=== PATIENT | male | born 2000 ===

== ENCOUNTER 2024-07-15 19:54 | Inpatient (IN) | payer BC, SELFPAY ==
[2024-07-15 19:57] VITALS: BP 159/111; PULSE 87; RESP 20; TEMP 36.8; O2SAT 96
[2024-07-15 20:00] VITALS: BP 159/111; PULSE 87; RESP 20; TEMP 36.8; O2SAT 96
[2024-07-15] MEDS: Ondansetron 4 MG/2 ML VIAL IVP (20:35)
[2024-07-15 20:45] LABS: Abs Immature Grans 0.04 10^3/uL (0.0-0.06); Absolute Basophil Count 0.01 10^3/uL (0.0-0.2); Absolute Eosinophil Count 0.02 10^3/uL (0.0-0.7); Absolute Lymphocyte Count 1.03 10^3/uL (1.2-3.4); Absolute Neutrophil Count 9.96 10^3/uL (1.2-6.7); Basophils % 0.1 %; Eosinophils % 0.2 %; HGB 14.1 g/dL (13.5-17.5); Immature Grans % 0.3 %; Lymphocytes % 8.7 %; MCHC 35.3 % (32.0-36.0); MCV 85 fL (80-95); MPV 9.8 fL (8.0-11.0); Monocytes % 6.4 %; Neutrophils % 84.3 %; Platelet Count 216 10^3/uL (130-400); RDW 11.9 % (11.8-14.1); RDW-SD 36.9 fL; WBC 11.81 10^3/uL (4.4-10.8)
[2024-07-15 20:46] LABS: Absolute Monocyte Count 0.76 10^3/uL (0.1-0.8)
[2024-07-15 20:58] VITALS: BP 147/90; PULSE 52; RESP 14; O2SAT 98
--- NOTE | 2024-07-15 21:06 | ED.GENADUL_ITS ---
Discharge Plan Disposition Patient Disposition: Admit to [facility] Condition: Improving Discharge Details Chief Complaint: Abd Prob Clinical Impression: MANDY (acute kidney injury) Primary Care Provider: Danita,Local ED Provider: Melissa Moreno Home Meds and New Rx's Prescriptions: No Action amoxicillin 500 mg capsule 500 mg PO TID acetaminophen [Tylenol] 325 mg tablet 650 mg PO Q6H PRN ibuprofen 300 mg tablet 600 mg PO Q6H HPI General Mode of arrival: ambulatory . Date/Time Provider Initiated Documentation: 07/15/24 20:08 . Limitations to Documentation: no limitations . Information obtained by: patient, family and old records reviewed . HPI Narrative: This is a 23-year-old male patient presenting for evaluation of nausea and vomiting. The patient reports that he was started on amoxicillin on Saturday, and has been taking that 3 times per day as prescribed. This was for a right lower tooth dental infection, and he does report some improvement in those symptoms. He states that 2 to 3 days ago he developed some nausea and has been vomiting, nonbloody, with no associated diarrhea or dysuria. He states that he has been able to drink water but has not really been eating. He has had some nonspecific abdominal pain. No history of abdominal surgeries. Nobody else has been sick with similar symptoms in his home. He stopped smoking marijuana in March, vapes nicotine when he is well. No alcohol consumption reported Related Data Home Medications ?Medication ?Instructions ?Recorded ?Confirmed acetaminophen 325 mg tablet 650 mg PO Q6H PRN 07/15/24 07/15/24 (Tylenol) amoxicillin 500 mg capsule 500 mg PO TID 07/15/24 07/15/24 ibuprofen 300 mg tablet 600 mg PO Q6H 07/15/24 07/15/24 Allergies Allergy/AdvReac Type Severity Reaction Status Date / Time No Known Allergies Allergy Unverified 07/15/24 20:01 General Stated Complaint: Abd Prob WILMER: 3 Exam Narrative Exam Narrative: Gen: Awake and alert, in no apparent distress HEENT: Non-icteric sclera Neck: Supple Lungs: No apparent respiratory distress, normal respiratory effort. CV: Appears well perfused, heart with regular rate and rhythm, strong distal pulses Abdomen: Non-distended, soft, nontender to palpation, without rigidity, rebound, or guarding MSK: Moves 4 extremities without apparent limitation in ROM Skin: Visualized skin without rashes, cyanosis. Neuro: Normal Gait, no obvious focal deficits or facial asymmetry. Speaks in full, clear sentences. Psych: Appropriate for situation. Course Vital Signs Vital signs: Vital Signs Temperature 36.8 C 07/15/24 19:57 Pulse 87 07/15/24 19:57 Respiratory Rate 20 07/15/24 19:57 Blood Pressure 159/111 H 07/15/24 19:57 Pulse Oximetry 96 07/15/24 19:57 Temperature 36.8 C 07/15/24 20:00 Pulse 52 L 07/15/24 20:58 Respiratory Rate 14 07/15/24 20:58 Respiratory Effort Normal 07/15/24 20:58 Respiratory Depth Normal 07/15/24 20:58 Blood Pressure 147/90 H 07/15/24 20:58 Blood Pressure Mean 109 07/15/24 20:58 Blood Pressure Position Sitting 07/15/24 20:58 Pulse Oximetry 98 07/15/24 20:58 Oxygen Delivery Method Room Air 07/15/24 20:58 Oxygen Flow Rate 0 07/15/24 20:58 Lab/Test Results Lab/Test Results: Laboratory Tests Range/Units 07/15/24 20:37 WBC (4.4-10.8) 10^3/uL 11.81 H RBC (4.36-5.78) 10^6/uL 4.70 Hgb (13.5-17.5) g/dL 14.1 Hct (40.0-50.0) % 40.0 MCV (80-95) fL 85 MCH (27.0-33.0) pg 30.0 MCHC (32.0-36.0) % 35.3 RDW (11.8-14.1) % 11.9 Plt Count (130-400) 10^3/uL 216 MPV (8.0-11.0) fL 9.8 Immature Gran % % 0.3 Neutrophils % % 84.3 Lymphocytes % % 8.7 Monocytes % % 6.4 Eosinophils % % 0.2 Basophils % % 0.1 Nucleated RBC % (0.0-0.3) % 0.0 Absolute Neutrophils (1.2-6.7) 10^3/uL 9.96 H Absolute Lymphocytes (1.2-3.4) 10^3/uL 1.03 L Absolute Monocytes (0.1-0.8) 10^3/uL 0.76 Absolute Eosinophils (0.0-0.7) 10^3/uL 0.02 Absolute Basophils (0.0-0.2) 10^3/uL 0.01 Medical Decision Making This is a 23-year-old male patient presenting for evaluation of vomiting. Differential includes but is not limited to medication effect, gastritis and gastroenteritis, pancreatitis, hepatitis, cholecystitis, considered appendicitis and diverticulitis though the patient is reassuringly without fever or abdominal tenderness. I considered metabolic derangements, electrolyte changes, dehydration, kidney injury, liver disease, anemia. We will obtain laboratory studies to include CBC, CMP, magnesium, lipase, and will provide the patient with a dose of Zofran for initial management of his symptoms. -I reviewed the patient's laboratory studies, white blood cell count 11.8, no anemia or thrombocytopenia. Chemistry panel is most notable for an elevation in his BUN and creatinine to 51 and 5.6 respectively. He has no other significant electrolyte derangements nor evidence of liver disease. Lipase is low. On repeat questioning, the patient reports that he had been taking a therapeutic amount of ibuprofen for his toothache. I am most concerned for prerenal MANDY, though certainly I considered AIN, ATN, nephrosis and nephritic syndromes. A urinalysis was obtained that shows trace blood, no casts or infectious findings. I provided the patient with a liter of IV fluids and he tolerated p.o. fluids appropriately without further vomiting. A repeat BNP was sent, which shows a slight decrease in his BUN and creatinine, 49 and 5.3 respectively. The patient is making appropriate urine and a second liter of fluids was provided. I feel that he warrants admission for his MANDY, and reach out to our hospitalist to discuss this case. They have graciously accepted this patient for admission for his MANDY, likely in the setting of dehydration and ibuprofen use. He was transferred to the hospitalist team without incident and remained hemodynamically appropriate while under my care. Melissa Moreno MD Quality:[facility] Health Related Social Needs: No Data to Display [facility] All Active Problems (Updated 07/16/24 @ 00:15 by Melissa Moreno MD) MANDY (acute kidney injury) (Acute) Social History Smoking risk assessment performed?: No
[2024-07-15 21:15] LABS: ALT 14 U/L (16-63); AST 14 U/L (15-37); Albumin 4.1 g/dL (3.4-5.0); Alkaline Phosphatase 58 U/L (46-116); Anion Gap 13.2 mmol/L (3-11); BUN 51 mg/dL (7-18); Bilirubin, Total 0.6 mg/dL (0.2-1.0); CO2 24.8 mmol/L (21.0-32.0); Calcium 9.5 mg/dL (8.5-10.1); Chloride 100 mmol/L (98-107); Estimated GFR 13.55 (mL/min/1.73m2); Glucose 110 mg/dL (74-106); Lipase 27 U/L (<78); Magnesium 2.5 mg/dL (1.8-2.4); Sodium 138 mmol/L (136-145); Total Protein 8.4 g/dL (6.4-8.2)
[2024-07-15 21:41] LABS: CREATININE 5.6 mg/dL (0.70-1.30)
[2024-07-15] MEDS: Lactated Ringers 1,000 ML 1000 ML IV (21:56)
[2024-07-15 22:58] LABS: Bilirubin Negative (Negative); Blood Small (Negative); Clarity Clear (Clear); Glucose Negative (Negative); Ketones Negative (Negative); Leukocyte Esterase Negative (Negative); Nitrite Negative (Negative); Specific Gravity 1.015 (1.005-1.025); Urobilinogen 0.2 mg/dL (Up to 0.2)
[2024-07-15 23:09] LABS: Bacteria Rare HPF (Negative); C & S Indicated? No; Crystals Negative HPF (Negative); Epithelial Cells Negative HPF (Negative); Mucus Negative (Negative); WBC Negative HPF (0-5)
[2024-07-15 23:47] LABS: Anion Gap 10.9 mmol/L (3-11); BUN 49 mg/dL (7-18); CO2 25.1 mmol/L (21.0-32.0); Calcium 9.1 mg/dL (8.5-10.1); Chloride 100 mmol/L (98-107); Estimated GFR 14.48 (mL/min/1.73m2); Glucose 110 mg/dL (74-106); Potassium 3.9 mmol/L (3.5-5.1); Sodium 136 mmol/L (136-145)
[2024-07-15 23:54] LABS: CREATININE 5.3 mg/dL (0.70-1.30)
[2024-07-16] VITALS (8 sets, daily range): BP systolic 128–154; BP diastolic 81–98; PULSE 45–60; RESP 16–24; TEMP 36.7–37.3; O2SAT 96–98
[2024-07-16] MEDS: Lactated Ringers 1,000 ML 1000 ML IV (00:02)
--- NOTE | 2024-07-16 00:22 | HPE_ITS ---
Date of service: 07/16/24 Time of Service: 00:22 Assessment and Plan Assessment and plan (1) MANDY (acute kidney injury): Start date: 07/16/24 Status: Acute Assessment and plan: This is a 23-year-old gentleman with recent nausea and vomiting after dental evaluation and treatment with amoxicillin and taking appropriate doses of ibuprofen for dental pain. He presents with evaluation of his nausea and vomiting and was found to have acute kidney injury with no comparison renal functions in the recent past. Patient is generally healthy and on no medical therapy. His urinalysis did appear nonconcentrated with some protein but no blood. He is responding to IV fluids with trending down creatinine but this is not rapid. Patient is essentially asymptomatic. He denies any gross hematuria in the past. He has no family history of significant renal disease. He needs to be imaged with renal ultrasound in the morning and will continue IV fluid resuscitation for probable acute kidney injury secondary to NSAIDs and volume loss. If he is not improving or picking up and his urine output, nephrology consultation by phone with recommendations. We will avoid nephrotoxic drugs. Patient is a full code. (2) Nausea & vomiting: Start date: 07/16/24 Status: Acute Assessment and plan: Patient has resolved this problem with benign abdominal exam. IV fluid resuscitation, antiemetics as needed and no further treatment with amoxicillin at this time. Patient will be on normal diet as tolerated. History of Present Illness History of Present Illness Chief Complaint: Nausea and vomiting after dental procedure on amoxicillin Narrative: This is a 23-year-old male patient who is on no medical therapy and has no chronic medical problems who presents after a 2 to 3-day history of nausea and vomiting with mild abdominal discomfort on amoxicillin for a dental infection in his right lower teeth. His dental problem has improved but he has not been eating well though he does not drink fluids. He is a previous marijuana smoker but has been off this for several months. He denies any diarrhea or symptoms has not felt faint. He has no respiratory complaints. He presented to the ED because of his persistent nausea and vomiting and does admit to taking ibuprofen for his dental pain while he was vomiting. In the ED he was found to have an elevated creatinine above 5 which improved after IV fluids with the patient producing urine. No imaging was performed the patient was thought to have acute kidney injury secondary to his volume loss and use of NSAIDs. The patient has not urinated since he has been brought to [facility] though we are continuing IV fluids. Will admit him for trending labs with urinalysis not having a high specific gravity indicating severe dehydration but having protein at a low level and no blood. This appears to be MANDY induced by volume shift and NSAIDs but if he is not improving or producing better urine, nephrology will be consulted in the morning. Imaging of the abdomen with renal ultrasound will also be performed in the morning. There is no family history of renal disease. He is a full code. Review of Systems Narrative: 13 point review of systems otherwise unrevealing or stable. PFSH All Active Problems (Updated 07/16/24 @ 00:29 by Олег Chacon) Acute dehydration (Acute) Nausea & vomiting (Acute) AMNDY (acute kidney injury) (Acute) Social History Smoking risk assessment performed?: No Housing: apartment Meds Allergies and Home Medications Allergies Allergy/AdvReac Type Severity Reaction Status Date / Time No Known Allergies Allergy Unverified 07/15/24 20:01 Home Medications ?Medication ?Instructions ?Recorded ?Confirmed ?Type acetaminophen 325 mg tablet 650 mg PO Q6H PRN 07/15/24 07/15/24 History (Tylenol) amoxicillin 500 mg capsule 500 mg PO TID 07/15/24 07/15/24 History ibuprofen 300 mg tablet 600 mg PO Q6H 07/15/24 07/15/24 History Exam Narrative Exam Narrative: General: Patient peers appropriate age, thinly built, alert and oriented x 3 and in no acute distress. HEENT: Normocephalic, eyes with pupils equal and reactive to light symmetrically, extraocular movement intact and sclera anicteric. Oropharynx with moist oral mucosa and good dentition. Neck: Supple without JVD. No palpable thyroid enlargement. Back: Normal posture without CVA tenderness. Lungs: Clear to auscultation percussion with no focalizing rales or rhonchi. Heart: Regular rate and rhythm with no murmurs gallops appreciated. Abdomen: Scaphoid contour, soft and nontender to palpation no palpable hepatosplenomegaly. No palpable masses. Bowel sounds positive in all quadrants. Genitalia/rectal: Exam deferred. Extremities: Without clubbing, cyanosis or pitting edema. Peripheral pulses intact. Skin: Normal color, warm and dry. Neuro: Cranial nerves II through XII is intact, no focal motor deficits and no tremor. Psych: Normal affect and mood. No abnormal thought processes. Remote and recent memory intact. Results Labs 07/16/24 06:30 07/16/24 06:30 Labs: Laboratory Results - last 24 hr 07/15/24 07/15/24 07/15/24 20:37 22:54 22:55 WBC 11.81 H RBC 4.70 Hgb 14.1 Hct 40.0 MCV 85 MCH 30.0 MCHC 35.3 RDW 11.9 Plt Count 216 MPV 9.8 Immature Gran % 0.3 Neutrophils % 84.3 Lymphocytes % 8.7 Monocytes % 6.4 Eosinophils % 0.2 Basophils % 0.1 Nucleated RBC % 0.0 Absolute Neutrophils 9.96 H Absolute Lymphocytes 1.03 L Absolute Monocytes 0.76 Absolute Eosinophils 0.02 Absolute Basophils 0.01 Sodium 138 136 Potassium 4.0 3.9 Chloride 100 100 Carbon Dioxide 24.8 25.1 Anion Gap 13.2 H 10.9 BUN 51 H 49 H Creatinine 5.6 H* 5.3 H* Est GFR (CKD-EPI 2020) 13.55 14.48 Glucose 110 H 110 H Calcium 9.5 9.1 Magnesium 2.5 H Total Bilirubin 0.6 AST 14 L ALT 14 L Alkaline Phosphatase 58 Total Protein 8.4 H Albumin 4.1 Lipase 27 Urine Color Yellow Urine Clarity Clear Urine pH 6.0 Ur Specific [place] 1.015 Urine Protein 100 H Urine Ketones Negative Urine Blood Small H Urine Nitrite Negative Urine Bilirubin Negative Urine Urobilinogen 0.2 Ur Leukocyte Esterase Negative Urine RBC 3-5 H Urine WBC Negative Ur Epithelial Cells Negative Urine Crystals Negative Urine Bacteria Rare Urine Mucus Negative Ur Culture Indicated? No Urine Glucose Negative Last Vital Signs Temp 36.8 C 07/16/24 00:06 Pulse 55 L 07/16/24 00:06 Resp 16 07/16/24 00:06 BP 137/95 H 07/16/24 00:06 Pulse Ox 96 07/16/24 00:06 Time Spent Time spent with Patient: 55-74 minutes Time was spent: preparing to see the patient(eg.review tests), obtaining and/or reviewing separately otained hiistory, ordering medications,tests, procedures, indepentently interpreting results and care coordination
--- NOTE | 2024-07-16 00:52 | W.PC.ACHO ---
Registration Status: Primary Language: Preferred Language: ED Information & Data Chief Complaint Abd Prob 07/15/24 21:07 Triage Note Tooth pain in lower R side 07/15/24 19:57 of mouth caused the PT to go to urgent care for treatment 4 days ago. Antibiotics prescribed. PT reports over the first 48 hours of taking Antibiotics he noticed increasing nausea . Now unable to eat without vomiting. Most Recent Vital Signs Temperature 36.8 C 07/16/24 00:06 Temperature Source Temporal Artery Scan 07/16/24 00:06 Pulse 55 L 07/16/24 00:06 Pulse Rhythm Regular 07/16/24 00:06 Pulse Strength Normal 07/16/24 00:06 Respiratory Rate 16 07/16/24 00:06 Respiratory Effort Normal 07/16/24 00:06 Respiratory Depth Normal 07/16/24 00:06 Respiratory Pattern Normal 07/16/24 00:06 Blood Pressure 137/95 H 07/16/24 00:06 Blood Pressure Mean 109 07/16/24 00:06 Blood Pressure Position Sitting 07/16/24 00:06 Pulse Oximetry 96 07/16/24 00:06 Oxygen Delivery Method Room Air 07/16/24 00:06 Oxygen Flow Rate 0 07/16/24 00:06 Pain Level 0 07/16/24 00:06 Allergies No Known Allergies Allergy (Unverified 07/15/24 20:01) Active Medications Generic Name Dose Route Start Last Admin Trade Name Freq PRN Reason Stop Dose Admin Ringer's Solution 1,000 mls @ 1,000 mls/hr 07/15/24 23:56 07/16/24 00:02 IV 07/16/24 00:55 1,000 mls/hr BOLUS ONE Administration IV IV Catheter Type [Right Peripheral IV Antecubital] IV Catheter Gauge [Right 18 Antecubital] Diagnostics 07/16/24 07/15/24 07/15/24 Range/Units 00:39 22:55 22:54 WBC (4.4-10.8) 10^3/uL RBC (4.36-5.78) 10^6/uL Hgb (13.5-17.5) g/dL Hct (40.0-50.0) % MCV (80-95) fL MCH (27.0-33.0) pg MCHC (32.0-36.0) % RDW (11.8-14.1) % Plt Count (130-400) 10^3/uL MPV (8.0-11.0) fL Immature Gran % % Neutrophils % % Lymphocytes % % Monocytes % % Eosinophils % % Basophils % % Nucleated RBC % (0.0-0.3) % Absolute Neutrophils (1.2-6.7) 10^3/uL Absolute Lymphocytes (1.2-3.4) 10^3/uL Absolute Monocytes (0.1-0.8) 10^3/uL Absolute Eosinophils (0.0-0.7) 10^3/uL Absolute Basophils (0.0-0.2) 10^3/uL Sodium 136 (136-145) mmol/L Potassium 3.9 (3.5-5.1) mmol/L Chloride 100 (98-107) mmol/L Carbon Dioxide 25.1 (21.0-32.0) mmol/L Anion Gap 10.9 (3-11) mmol/L BUN 49 H (7-18) mg/dL Creatinine 5.3 H* (0.70-1.30) mg/dL Est GFR (CKD-EPI 2020) 14.48 (mL/min/1.73m2) Glucose 110 H (74-106) mg/dL Calcium 9.1 (8.5-10.1) mg/dL Magnesium (1.8-2.4) mg/dL Total Bilirubin (0.2-1.0) mg/dL AST (15-37) U/L ALT (16-63) U/L Alkaline Phosphatase (46-116) U/L Total Protein (6.4-8.2) g/dL Albumin (3.4-5.0) g/dL Lipase (<78) U/L Urine Color Yellow (Yellow) Urine Clarity Clear (Clear) Urine pH 6.0 (5-8) Ur Specific [place] 1.015 (1.005-1.025) Urine Protein 100 H (Neg-Trace) mg/dL Urine Ketones Negative (Negative) mg/dL Urine Blood Small H (Negative) Urine Nitrite Negative (Negative) Urine Bilirubin Negative (Negative) Urine Urobilinogen 0.2 (Up to 0.2) mg/dL Ur Leukocyte Esterase Negative (Negative) Urine RBC 3-5 H (0-2) HPF Urine WBC Negative (0-5) HPF Ur Epithelial Cells Negative (Negative) HPF Urine Crystals Negative (Negative) HPF Urine Bacteria Rare (Negative) HPF Urine Mucus Negative (Negative) Ur Culture Indicated? No Urine Glucose Negative (Negative) mg/dL COVID-19 Source Pending SARS-CoV-2 (PCR) Pending Influenza Type A (PCR) Pending Influenza Type B (PCR) Pending RSV (PCR) Pending 07/15/24 Range/Units 20:37 WBC 11.81 H (4.4-10.8) 10^3/uL RBC 4.70 (4.36-5.78) 10^6/uL Hgb 14.1 (13.5-17.5) g/dL Hct 40.0 (40.0-50.0) % MCV 85 (80-95) fL MCH 30.0 (27.0-33.0) pg MCHC 35.3 (32.0-36.0) % RDW 11.9 (11.8-14.1) % Plt Count 216 (130-400) 10^3/uL MPV 9.8 (8.0-11.0) fL Immature Gran % 0.3 % Neutrophils % 84.3 % Lymphocytes % 8.7 % Monocytes % 6.4 % Eosinophils % 0.2 % Basophils % 0.1 % Nucleated RBC % 0.0 (0.0-0.3) % Absolute Neutrophils 9.96 H (1.2-6.7) 10^3/uL Absolute Lymphocytes 1.03 L (1.2-3.4) 10^3/uL Absolute Monocytes 0.76 (0.1-0.8) 10^3/uL Absolute Eosinophils 0.02 (0.0-0.7) 10^3/uL Absolute Basophils 0.01 (0.0-0.2) 10^3/uL Sodium 138 (136-145) mmol/L Potassium 4.0 (3.5-5.1) mmol/L Chloride 100 (98-107) mmol/L Carbon Dioxide 24.8 (21.0-32.0) mmol/L Anion Gap 13.2 H (3-11) mmol/L BUN 51 H (7-18) mg/dL Creatinine 5.6 H* (0.70-1.30) mg/dL Est GFR (CKD-EPI 2020) 13.55 (mL/min/1.73m2) Glucose 110 H (74-106) mg/dL Calcium 9.5 (8.5-10.1) mg/dL Magnesium 2.5 H (1.8-2.4) mg/dL Total Bilirubin 0.6 (0.2-1.0) mg/dL AST 14 L (15-37) U/L ALT 14 L (16-63) U/L Alkaline Phosphatase 58 (46-116) U/L Total Protein 8.4 H (6.4-8.2) g/dL Albumin 4.1 (3.4-5.0) g/dL Lipase 27 (<78) U/L Urine Color (Yellow) Urine Clarity (Clear) Urine pH (5-8) Ur Specific [place] (1.005-1.025) Urine Protein (Neg-Trace) mg/dL Urine Ketones (Negative) mg/dL Urine Blood (Negative) Urine Nitrite (Negative) Urine Bilirubin (Negative) Urine Urobilinogen (Up to 0.2) mg/dL Ur Leukocyte Esterase (Negative) Urine RBC (0-2) HPF Urine WBC (0-5) HPF Ur Epithelial Cells (Negative) HPF Urine Crystals (Negative) HPF Urine Bacteria (Negative) HPF Urine Mucus (Negative) Ur Culture Indicated? Urine Glucose (Negative) mg/dL COVID-19 Source SARS-CoV-2 (PCR) Influenza Type A (PCR) Influenza Type B (PCR) RSV (PCR) Intake and Output - 24 Hour Total 07/15/24 19:54 thru 07/15/24 22:49 Intake Total 1000 Balance 1000 Weight 56.699 kg Intake: IV 1000 Falls Risk Assessment History of Falls No History 07/15/24 20:00 Contributing Factors No Factors 07/15/24 20:00 Ambulatory Aids Independent 07/15/24 20:00 Tubes/Lines None 07/15/24 20:00 Gait Evaluation No gait disturbance 07/15/24 20:00 Cognition No cognitive impairment 07/15/24 20:00 Fall Total Score 0 07/15/24 20:00 Level of Risk Standard/Low Risk 07/15/24 20:00 Problems (Last Reviewed 07/16/24 @ 00:23 by Олег Chacon) Nausea & vomiting (Acute) MANDY (acute kidney injury) (Acute) v v v v v v v v v Sending and/or Receiving Nurses: Please use comment section below to note any information pertinent to the patient hand-off not included above. Information / Comments: Right lower tooth pain and has been started on amoxicillin x 2 days ago, then nausea and vomiting x 2 days, no diarrhea, able to drink some water but not eating food, has been taking ibuprofen, 1L LR given, repeat BMP, second liter nearly finished, 4mg Zofran, admit with MANDY, #18 Right AC, alert and oriented and independent Report received from: Araceli Lee RN from ED
[2024-07-16] MEDS: Lactated Ringers 1,000 ML 150 ML IV ×4 (01:08→23:21)
[2024-07-16 01:34] LABS: COVID-19 PCR Negative (Negative); Influenza A PCR Negative (Negative); Influenza B PCR Negative (Negative); RSV PCR Negative (Negative)
[2024-07-16 01:41] LABS: Source Nasopharynx
[2024-07-16 01:53] LABS: *AMPHETAMINES SCREEN URINE Negative (Negative); *BARBITURATES SCREEN URINE Negative (Negative); *BENZODIAZEPINES SCREEN URINE Negative (Negative); Cannabinoids THC Negative (Negative); Cocaine Screen,Urine Negative (Negative); METHADONE URINE SCREEN Negative (Negative); OPIATES URINE SCREEN Negative (Negative); Tricyclic Antidepressants Negative (Negative)
[2024-07-16 06:41] LABS: HCT 34.8 % (40.0-50.0); HGB 12.2 g/dL (13.5-17.5); MCH 29.8 pg (27.0-33.0); MCHC 35.1 % (32.0-36.0); MCV 85 fL (80-95); MPV 10.1 fL (8.0-11.0); Platelet Count 187 10^3/uL (130-400); RBC 4.09 10^6/uL (4.36-5.78); RDW 12.1 % (11.8-14.1); RDW-SD 37.4 fL; WBC 8.73 10^3/uL (4.4-10.8)
[2024-07-16 07:08] LABS: ALT 22 U/L (16-63); AST 18 U/L (15-37); Albumin 3.2 g/dL (3.4-5.0); Alkaline Phosphatase 66 U/L (46-116); Anion Gap 12.3 mmol/L (3-11); BUN 48 mg/dL (7-18); Bilirubin, Total 0.5 mg/dL (0.2-1.0); CO2 25.7 mmol/L (21.0-32.0); Calcium 8.7 mg/dL (8.5-10.1); Chloride 102 mmol/L (98-107); Estimated GFR 13.55 (mL/min/1.73m2); Glucose 100 mg/dL (74-106); Magnesium 2.2 mg/dL (1.8-2.4); Potassium 3.9 mmol/L (3.5-5.1); Sodium 140 mmol/L (136-145); TSH (W/Ref FT4) 0.94 uIU/mL (0.36-3.74); Total Protein 6.7 g/dL (6.4-8.2)
[2024-07-16 07:10] LABS: CREATININE 5.6 mg/dL (0.70-1.30)
[2024-07-16] MEDS: Enoxaparin 30 MG/0.3 ML SYR SC (08:19)
--- NOTE | 2024-07-16 10:00 | DI.US_ITS ---
Exam(s) US RENAL EXAM: US RENAL CLINICAL HISTORY: MANDY TECHNIQUE: Ultrasound of both kidneys performed using standard protocol. COMPARISON: No exams were available for comparison FINDINGS: RIGHT KIDNEY: Measures 9.9 cm in length. No cysts evident. No solid lesions. Normal cortical thickness but the cortical mantle appears uniformly hyperechoic, similar to the oppos ite side. LEFT KIDNEY: Measures 1.7 cm in length. No cysts evident. No solid lesions. Normal cortical thickness but cortic al mantle appears uniformly hyperechoic, similar to the opposite side. URINARY BLADDER: Prevoid volume is 270 cc Postvoid volume is 0 cc No evidence of bladder mass nor diverticuli. Ureterovesical jets: Both identified and appear symmetrical PROSTATE GLAND: Normal size IMPRESSION: 1. No evidence of hydronephrosis 2. Both kidneys appear uniformly hyperechoic consistent with an element of probable medical renal di sease. DATA REPOSITORY:
--- NOTE | 2024-07-16 10:35 | W.PM.PROGNOT ---
Date of Service Date of service: 07/16/24 Time of Service: 10:35 Assessment and Plan Assessment and plan (1) MANDY (acute kidney injury): Start date: 07/16/24 Status: Acute Assessment and plan: In setting of nausea and vomiting/dehydration along with NSAID use. U/a with only few RBCs and protein, no WBC. Not c/w nephritis. No casts. No obstruction evident. At this point, prerenal vs ATN. Lack of improvement so far suggests he may be headed towards ATN despite bland U/a. Urine prot, Cr, and sodium sent. Continue IV fluids, he is now taking some po. Urine output has not been great but has been adequate, strict i/os. (2) Nausea & vomiting: Start date: 07/16/24 Status: Acute Assessment and plan: Improved. Continue supportive care. (3) Dental infection: Status: Acute Assessment and plan: Not severe, can consider resuming antibiotics when kidney function improves, but hold off for now. (4) DVT prophylaxis: Status: Acute Assessment and plan: he is young and ambulatory, can stop LMWH. Subjective Subjective Patient reports: feels better, tolerating a regular diet and voiding w/o difficulty; denies diarrhea, vomiting, shortness of breath or fever Interval history since last seen: Events: Admitted just after midnight He feels a little better. He is eating for the first time in 3 days, not nauseous now. Tooth still a little sore, he only kept down the amoxicillin for about 3 days. He is voiding, no pain or blood. He never had this before. No other meds than amox and ibuprofen. No fx renal disease. Exam Narrative Exam Narrative: General: Patient peers appropriate age, thinly built, alert and oriented x 3 and in no acute distress. HEENT: MMM Lungs: Clear to auscultation percussion with no focalizing rales or rhonchi. Heart: Regular rate and rhythm with no murmurs gallops appreciated. Abdomen: soft, NT/ND, no masses Back: no CVAT Extremities: Without clubbing, cyanosis or pitting edema. Peripheral pulses intact. Objective Last Vital Signs Temp 36.7 C 07/16/24 07:57 Pulse 47 L 07/16/24 07:57 Resp 24 07/16/24 07:57 BP 133/89 07/16/24 07:57 Pulse Ox 96 07/16/24 07:57 Laboratory Results - last 24 hr 07/15/24 07/15/24 07/15/24 00:00 20:37 22:54 WBC 11.81 H RBC 4.70 Hgb 14.1 Hct 40.0 MCV 85 MCH 30.0 MCHC 35.3 RDW 11.9 Plt Count 216 MPV 9.8 Immature Gran % 0.3 Neutrophils % 84.3 Lymphocytes % 8.7 Monocytes % 6.4 Eosinophils % 0.2 Basophils % 0.1 Nucleated RBC % 0.0 Absolute Neutrophils 9.96 H Absolute Lymphocytes 1.03 L Absolute Monocytes 0.76 Absolute Eosinophils 0.02 Absolute Basophils 0.01 Sodium 138 Potassium 4.0 Chloride 100 Carbon Dioxide 24.8 Anion Gap 13.2 H BUN 51 H Creatinine 5.6 H* Est GFR (CKD-EPI 2020) 13.55 Glucose 110 H Calcium 9.5 Magnesium 2.5 H Total Bilirubin 0.6 AST 14 L ALT 14 L Alkaline Phosphatase 58 Total Protein 8.4 H Albumin 4.1 Lipase 27 TSH Urine Color Yellow Urine Clarity Clear Urine pH 6.0 Ur Specific [place] 1.015 Urine Protein 100 H Urine Ketones Negative Urine Blood Small H Urine Nitrite Negative Urine Bilirubin Negative Urine Urobilinogen 0.2 Ur Leukocyte Esterase Negative Urine RBC 3-5 H Urine WBC Negative Ur Epithelial Cells Negative Urine Crystals Negative Urine Bacteria Rare Urine Mucus Negative Ur Culture Indicated? No Urine Glucose Negative Urine Opiates Screen Negative Urine Methadone Screen Negative Ur Barbiturates Screen Negative Ur Tricyclics Screen Negative Ur Amphetamines Screen Negative U Benzodiazepines Scrn Negative Urine Cocaine Screen Negative Ur THC Screen Negative COVID-19 Source SARS-CoV-2 (PCR) Influenza Type A (PCR) Influenza Type B (PCR) RSV (PCR) 07/15/24 07/16/24 07/16/24 22:55 00:54 06:30 WBC 8.73 RBC 4.09 L Hgb 12.2 L Hct 34.8 L MCV 85 MCH 29.8 MCHC 35.1 RDW 12.1 Plt Count 187 MPV 10.1 Immature Gran % Neutrophils % Lymphocytes % Monocytes % Eosinophils % Basophils % Nucleated RBC % Absolute Neutrophils Absolute Lymphocytes Absolute Monocytes Absolute Eosinophils Absolute Basophils Sodium 136 140 Potassium 3.9 3.9 Chloride 100 102 Carbon Dioxide 25.1 25.7 Anion Gap 10.9 12.3 H BUN 49 H 48 H Creatinine 5.3 H* 5.6 H* Est GFR (CKD-EPI 2020) 14.48 13.55 Glucose 110 H 100 Calcium 9.1 8.7 Magnesium 2.2 Total Bilirubin 0.5 AST 18 ALT 22 Alkaline Phosphatase 66 Total Protein 6.7 Albumin 3.2 L Lipase TSH Cancelled Urine Color Urine Clarity Urine pH Ur Specific [place] Urine Protein Urine Ketones Urine Blood Urine Nitrite Urine Bilirubin Urine Urobilinogen Ur Leukocyte Esterase Urine RBC Urine WBC Ur Epithelial Cells Urine Crystals Urine Bacteria Urine Mucus Ur Culture Indicated? Urine Glucose Urine Opiates Screen Urine Methadone Screen Ur Barbiturates Screen Ur Tricyclics Screen Ur Amphetamines Screen U Benzodiazepines Scrn Urine Cocaine Screen Ur THC Screen COVID-19 Source Nasopharynx SARS-CoV-2 (PCR) Negative Influenza Type A (PCR) Negative Influenza Type B (PCR) Negative RSV (PCR) Negative 07/16/24 06:30 WBC RBC Hgb Hct MCV MCH MCHC RDW Plt Count MPV Immature Gran % Neutrophils % Lymphocytes % Monocytes % Eosinophils % Basophils % Nucleated RBC % Absolute Neutrophils Absolute Lymphocytes Absolute Monocytes Absolute Eosinophils Absolute Basophils Sodium Potassium Chloride Carbon Dioxide Anion Gap BUN Creatinine Est GFR (CKD-EPI 2020) Glucose Calcium Magnesium Total Bilirubin AST ALT Alkaline Phosphatase Total Protein Albumin Lipase TSH 0.94 Urine Color Urine Clarity Urine pH Ur Specific [place] Urine Protein Urine Ketones Urine Blood Urine Nitrite Urine Bilirubin Urine Urobilinogen Ur Leukocyte Esterase Urine RBC Urine WBC Ur Epithelial Cells Urine Crystals Urine Bacteria Urine Mucus Ur Culture Indicated? Urine Glucose Urine Opiates Screen Urine Methadone Screen Ur Barbiturates Screen Ur Tricyclics Screen Ur Amphetamines Screen U Benzodiazepines Scrn Urine Cocaine Screen Ur THC Screen COVID-19 Source SARS-CoV-2 (PCR) Influenza Type A (PCR) Influenza Type B (PCR) RSV (PCR) Time Spent with Patient Time Spent with Patient: 25-34 minutes Time was spent: preparing to see the patient(eg.review tests), obtaining and/or reviewing separately otained hiistory, ordering medications,tests, procedures, referring, communicating with other health primary care physician, indepentently interpreting results, counseling the patient and care coordination
--- NOTE | 2024-07-16 13:33 | CHAPLAIN ---
Fady is here visiting his sister when he became ill. He's from [place] and his mom is here with him. (She was getting something to eat when I stopped in.) I explained my role and offered support.
--- NOTE | 2024-07-16 15:54 | PDOC.CMIN ---
Date of service: 07/16/24 Time of Service: 15:54 Care Management Initial Assmt Initial Assessment Reason for Hospitalization: MANDY Functional Status/Living Situation Patient Presentation: Navi presented to the ED yesterday with c/o nausea and vomiting. He had been started on amoxicillin for a dental infection. He stated that 2-3 days prior to coming in to the ER he developed n/v, and was unable to really eat anything. He was found to have MANDY with creatinine of 5.6 and BUN 51. He has been receiving IVF at 150cc/h. attempted to visit with Navi several times today, but he had been sleeping. When he was awake, Navi stated that he is feeling lousy, even worse than when he came in. He has been unable to tolerate any food, and has been sure to keep his vomit bag handy. Navi's mom was present in the room as well. Navi is here from [place], [place], visiting family. His original plan was to go home over the weekend. Navi was supposed to start a job in [place] on Saturday, but is unsure he will be able to do so. offered a letter verifying his hospitalization, but he is not sure he will need it. Town of Residence: [place], [place] Employment Status: Unemployed Instrumental Activities of Daily Living (ADLs): Independent Medications Medication Management: No Issues/Barriers identified (no prescribed meds) Advance Directives Advance Directives: Do you have an Advance Directive: AD On File at [facility]: N 07/15/24 21:16 Date Asked 07/15/24 07/15/24 21:16 AD Date Reviewed COLST On File at [facility] COLST Date Scanned Code Status Resuscitation Status Full Code Insurance Coverage/Financial Issues Insurance: BC/BS Federal? Care Team Visit Care Team Role Provider Type Zhang Mandel MD [facility] STAFF PHYSICIAN Local No Primary Care Provider NON-[facility] STAFF PHYSICIAN Melissa Moreno MD Emergency Provider [facility] STAFF PHYSICIAN Олег Chacon Admit Provider NON-[facility] STAFF PHYSICIAN Attending Provider Discharge Potential Discharge Needs: PCP F/U Appt Anticipated Barriers to Discharge: None Identified Patient/Family Education Needs: Review discharge instructions, discuss Ask Me Three Transportation: Private vehicle Plan: Anticipate that Fady will discharge home with no new services once he is medically stable. He will f/u with his PCP in [place] and continue per his plan of care. He will transport home in a private vehicle with family. CM will continue to follow. Social Determinants of Health Screening Social Determinants of health last assessed in clinic: 07/16/24 Will the Patient Participate in the Screening?: Yes Do you worry about having a steady place to live?: no Problems where you live: no known problems In the past 12 months, have you had to go without electric, gas, oil or water in your home?: no 1. Within the past 12 months, we worried whether our food would run out before we got money to buy more.: Don't know/refused 2. Within the past 12 months, the food we bought just didn't last and we didn't have money to get more.: Don't know/refused Has lack of transportation kept you from medical appointments or from doing things needed for daily living?: no Has anyone in your life made you feel unsafe or unsupported?: no How hard is it for you to pay for the very basics like food, housing, medical care, and heating? Would you say it is:: Very hard Do you want help finding or keeping work or a job?: I do not need or want help If for any reason you need help with day-to-day activities such as bathing, preparing meals, shopping, managing finances, etc., do you get the help you need?: I get all the help I need How often do you feel lonely or isolated from those around you?: Never Do you speak a language other than Irish at home?: No Does the patient want assistance with any of the above?: No Health Related Social Needs Health related social needs: problems related to housing/economic circumstances (Z59.89) Health related social needs details: financial difficulties PFSH All Active Problems (Updated 07/16/24 @ 10:58 by Zhang Mandel) DVT prophylaxis (Acute) Dental infection (Acute) Acute dehydration (Acute) Nausea & vomiting (Acute) MANDY (acute kidney injury) (Acute) Social History Smoking risk assessment performed?: No Housing: apartment
--- NOTE | 2024-07-16 15:56 | PHACLINREV_ITS ---
Pharmacy Admission Review Admission Clinical Review Admission Pharmacy Review: DVT prophylaxis (Acute) Dental infection (Acute) Nausea & vomiting (Acute) MANDY (acute kidney injury) (Acute) No Known Allergies Allergy (Unverified 07/15/24 20:01) Resuscitation Status Full Code Height 5 ft 6 in Weight 55.4 kg Pharmacy Admission Review Renal Dosing Renal Dosing: BUN 48 mg/dL (7-18) H 07/16/24 06:30 Creatinine 5.6 mg/dL (0.70-1.30) H* 07/16/24 06:30 Medications needing adjustments: Reviewed (CrCl 15 mL/min, BUN decreased from 49, SCr increased from 5.3) List of meds needing interventions: Current medications are okay Anticoagulation Anticoagulation: Hgb 12.2 g/dL (13.5-17.5) L 07/16/24 06:30 Hct 34.8 % (40.0-50.0) L 07/16/24 06:30 Plt Count 187 10^3/uL (130-400) 07/16/24 06:30 Creatinine 5.6 mg/dL (0.70-1.30) H* 07/16/24 06:30 DVT Prophylaxis: Intervened (Had order for enoxaparin 30mg daily. Asked provider during morning meeting if patient needed DVT prophylaxis (23 years old). Provid er decided to discontinue the order) Relevant Labs Relevant Labs: Sodium 140 mmol/L (136-145) 07/16/24 06:30 Potassium 3.9 mmol/L (3.5-5.1) 07/16/24 06:30 Chloride 102 mmol/L (98-107) 07/16/24 06:30 Magnesium 2.2 mg/dL (1.8-2.4) 07/16/24 06:30 Electrolytes, C-Reactive P, ESR: Reviewed Cardiac Review Cardiac Review: Blood Pressure 154/98 1524 Blood Pressure 142/92 1157 Blood Pressure 133/89 0757 BP, HR, EF%: Reviewed (HR 45 - has ranged from mid 40s to mid 50s for most of the day) QTc Review QTc: Reviewed (No EKG on file) IV to PO Switch IV Medications: Reviewed (prochlorperazine) Home Meds Home Med List reviewed: Reviewed Relevent Home Meds Not ordered & why?: ibuprofen (PRN) and amoxicillin Current Meds Current Medication Order Review: Intervened Comments: Changed IV ED access order
[2024-07-16 18:07] LABS: Sodium, Urine 21 mmol/L
[2024-07-16] MEDS: Normal Saline Flush 10 ML SYR IVP (21:00)
[2024-07-17 02:46] VITALS: BP 132/84; PULSE 50; RESP 19; TEMP 37; O2SAT 97
[2024-07-17] MEDS: Lactated Ringers 1,000 ML 150 ML IV ×3 (06:42→19:52)
[2024-07-17 06:59] LABS: Anion Gap 11.2 mmol/L (3-11); BUN 48 mg/dL (7-18); CO2 24.8 mmol/L (21.0-32.0); Calcium 8.8 mg/dL (8.5-10.1); Chloride 104 mmol/L (98-107); Estimated GFR 11.99 (mL/min/1.73m2); Glucose 90 mg/dL (74-106); Potassium 4.1 mmol/L (3.5-5.1); Sodium 140 mmol/L (136-145)
[2024-07-17 07:03] LABS: CREATININE 6.2 mg/dL (0.70-1.30)
[2024-07-17 07:37] VITALS: BP 135/92; PULSE 52; RESP 16; TEMP 36.4; O2SAT 98
[2024-07-17 12:17] LABS: Bilirubin Negative (Negative); Blood Small (Negative); Clarity Clear (Clear); Glucose Negative (Negative); Ketones Negative (Negative); Leukocyte Esterase Negative (Negative); Nitrite Negative (Negative); Specific Gravity <= 1.005 (1.005-1.025); Urobilinogen 0.2 mg/dL (Up to 0.2); pH 5.5 (5-8)
[2024-07-17 12:43] LABS: Bacteria Negative HPF (Negative); C & S Indicated? No; Casts 0-2 Hyaline LPF (Negative); Crystals Negative HPF (Negative); Epithelial Cells Rare HPF (Negative); Mucus Negative (Negative); RBC 0-2 HPF (0-2); WBC Negative HPF (0-5)
--- NOTE | 2024-07-17 13:54 | W.PM.PROGNOT ---
Date of Service Date of service: 07/17/24 Time of Service: 13:55 Assessment and Plan Assessment and plan (1) MANDY (acute kidney injury): Start date: 07/16/24 Status: Acute Assessment and plan: In setting of nausea and vomiting/dehydration along with NSAID use. U/a with only few RBCs and protein, no WBC. Not c/w nephritis. No casts. No change on repeat 07/17. No obstruction evident. U/s reassuring. At this point, looks like pre-renal led to ATN. Expect slow improvement over days. Continue IV fluids, he is now taking some po. Urine output has has been adequate, continue strict i/os. (2) Nausea & vomiting: Start date: 07/16/24 Status: Acute Assessment and plan: Improved. Continue supportive care. (3) Dental infection: Status: Acute Assessment and plan: Not severe, can consider resuming antibiotics when kidney function improves, no change today.. (4) DVT prophylaxis: Status: Acute Assessment and plan: he is young and ambulatory, stopped LMWH. Subjective Subjective Patient reports: no new complaints and voiding w/o difficulty; denies bowel movement, diarrhea, vomiting, shortness of breath or fever Interval history since last seen: No events. He is urinating. Occasional nausea, but he is eating. No swelling. Tooth not bothering him. Exam Narrative Exam Narrative: General: Patient peers appropriate age, thinly built, alert and oriented x 3 and in no acute distress. HEENT: MMM Lungs: Clear to auscultation percussion with no focalizing rales or rhonchi. Heart: Regular rate and rhythm with no murmurs gallops appreciated. Abdomen: soft, NT/ND, no masses Back: no CVAT Extremities: Without clubbing, cyanosis or pitting edema. Peripheral pulses intact. Objective Last Vital Signs Temp 36.4 C L 07/17/24 07:37 Pulse 52 L 07/17/24 07:37 Resp 16 07/17/24 07:37 BP 135/92 H 07/17/24 07:37 Pulse Ox 98 07/17/24 07:37 Laboratory Results - last 24 hr 07/16/24 07/17/24 07/17/24 10:15 06:11 11:50 Sodium 140 Potassium 4.1 Chloride 104 Carbon Dioxide 24.8 Anion Gap 11.2 H BUN 48 H Creatinine 6.2 H* Est GFR (CKD-EPI 2020) 11.99 Glucose 90 Calcium 8.8 Urine Color Yellow Urine Clarity Clear Urine pH 5.5 Ur Specific [place] <= 1.005 Urine Protein 100 H Urine Ketones Negative Urine Blood Small H Urine Nitrite Negative Urine Bilirubin Negative Urine Urobilinogen 0.2 Ur Leukocyte Esterase Negative Urine RBC 0-2 Urine WBC Negative Ur Epithelial Cells Rare Urine Crystals Negative Urine Bacteria Negative Urine Casts 0-2 Hyaline Urine Mucus Negative Ur Culture Indicated? No Ur Random Sodium 21 Urine Glucose Negative Time Spent with Patient Time Spent with Patient: 25-34 minutes Time was spent: preparing to see the patient(eg.review tests), obtaining and/or reviewing separately otained hiistory, ordering medications,tests, procedures, referring, communicating with other health hospice care transitions coordinator, indepentently interpreting results, counseling the patient and care coordination
--- NOTE | 2024-07-17 14:58 | CMPROGNOTE_ITS ---
Date of service: 07/17/24 Time of Service: 14:58 Care Management Progress Note Progress Note Text Progress Note Text: Fady was lying in bed when CM met with him today. He definitely presented as feeling a bit better. He smiled and was more strong when he talked than he was yesterday. He said that he has been able to eat a little bit today, and didn't think of that as an improvement, but was pleased to hear it was. IV fluids are still running at 150cc/h. 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 He may need a letter that verifies his hospitalization, but he is unsure. Discharge Potential Discharge Needs: PCP F/U Appt (PCP is in [place]) Anticipated Barriers to Discharge: None Identified Patient/Family Education Needs: Review discharge instructions, discuss Ask Me Three Transportation: Private vehicle Plan: Anticipate that Fady will discharge home with no new services once he is medically stable. He will f/u with his PCP in [place] and continue per his plan of care. He will transport home in a private vehicle with family. CM will c ontinue to follow. Social Determinants of Health Screening Social Determinants of health last assessed in clinic: 07/17/24 Will the Patient Participate in the Screening?: Yes Do you worry about having a steady place to live?: no Problems where you live: no known problems In the past 12 months, have you had to go without electric, gas, oil or water in your home?: no 1. Within the past 12 months, we worried whether our food would run out before we got money to buy more.: Don't know/refused 2. Within the past 12 months, the food we bought just didn't last and we didn't have money to get more.: Don't know/refused Has lack of transportation kept you from medical appointments or from doing things needed for daily living?: no Has anyone in your life made you feel unsafe or unsupported?: no How hard is it for you to pay for the very basics like food, housing, medical care, and heating? Would you say it is:: Very hard Do you want help finding or keeping work or a job?: I do not need or want help If for any reason you need help with day-to-day activities such as bathing, preparing meals, shopping, managing finances, etc., do you get the help you need?: I get all the help I need How often do you feel lonely or isolated from those around you?: Never Do you speak a language other than [place] at home?: No Does the patient want assistance with any of the above?: No Health Related Social Needs Health related social needs: problems related to housing/economic circumstances (Z59.89) Health related social needs details: financial difficulties
[2024-07-17 15:19] VITALS: BP 133/89; PULSE 64; RESP 17; TEMP 36.7; O2SAT 97
[2024-07-17 18:41] VITALS: BP 143/99; PULSE 60; RESP 17; TEMP 36.5; O2SAT 98
[2024-07-17] MEDS: Normal Saline Flush 10 ML SYR IVP (19:50)
[2024-07-18 00:51] VITALS: BP 138/94; PULSE 55; RESP 18; TEMP 37.2; O2SAT 96
[2024-07-18] MEDS: Lactated Ringers 1,000 ML 150 ML IV ×4 (03:06→23:53)
[2024-07-18 03:09] VITALS: BP 141/81; PULSE 53; RESP 18; TEMP 37.2; O2SAT 96
[2024-07-18 04:03] LABS: COMMENT (LAB VIEW ONLY) 67.46 mg/dL; PROTEIN 45.2 mg/dL; Prot/Crea Ur Ratio 0.67
[2024-07-18 06:51] LABS: HCT 31.5 % (40.0-50.0); HGB 11.1 g/dL (13.5-17.5); MCH 30.1 pg (27.0-33.0); MCHC 35.2 % (32.0-36.0); MCV 85 fL (80-95); MPV 10.6 fL (8.0-11.0); Platelet Count 194 10^3/uL (130-400); RBC 3.69 10^6/uL (4.36-5.78); RDW 11.9 % (11.8-14.1); WBC 8.31 10^3/uL (4.4-10.8)
[2024-07-18 07:04] LABS: Anion Gap 4.6 mmol/L (3-11); BUN 47 mg/dL (7-18); CO2 28.4 mmol/L (21.0-32.0); Calcium 8.4 mg/dL (8.5-10.1); Chloride 109 mmol/L (98-107); Estimated GFR 12.99 (mL/min/1.73m2); Glucose 96 mg/dL (74-106); Potassium 4.5 mmol/L (3.5-5.1); Sodium 142 mmol/L (136-145)
[2024-07-18 07:11] LABS: CREATININE 5.8 mg/dL (0.70-1.30)
[2024-07-18 09:13] VITALS: BP 126/80; PULSE 77; RESP 16; TEMP 36.3; O2SAT 97
[2024-07-18] MEDS: Normal Saline Flush 10 ML SYR IVP ×2 (09:14→20:13)
--- NOTE | 2024-07-18 15:09 | W.PM.PROGNOT ---
Date of Service Date of service: 07/18/24 Time of Service: 15:09 Assessment and Plan Assessment and plan (1) MANDY (acute kidney injury): Start date: 07/16/24 Status: Acute Assessment and plan: In setting of nausea and vomiting/dehydration along with NSAID use. U/a with only few RBCs and protein, no WBC. Not c/w nephritis. No casts. No change on repeat 07/17. No obstruction evident. U/s reassuring. At this point, looks like pre-renal led to ATN. Expect slow improvement over days. Continue IV fluids, he is now taking some po. Urine output has has been adequate, continue strict i/os. 07/18/24 Mild improvement over last 24 hours. CW IVF LR at 150 and recheck cmp in am (2) Nausea & vomiting: Start date: 07/16/24 Status: Acute Assessment and plan: Improved. Continue supportive care. (3) Dental infection: Status: Acute Assessment and plan: Not severe, can consider resuming antibiotics when kidney function improves, no change today. 07/18/24 Pt will need definitive dental treatment (4) DVT prophylaxis: Status: Acute Assessment and plan: he is young and ambulatory, stopped LMWH. Subjective Subjective Interval history since last seen: Still with abd pain mostly in LLQ and RLQ. Complains of decreased appetite. No more n/v Exam Narrative Exam Narrative: General: Patient peers appropriate age, thinly built, alert and oriented x 3 and in no acute distress. HEENT: MMM Lungs: Clear to auscultation percussion with no focalizing rales or rhonchi. Heart: Regular rate and rhythm with no murmurs gallops appreciated. Abdomen: soft, NT/ND, no masses Back: no CVAT Extremities: Without clubbing, cyanosis or pitting edema. Peripheral pulses intact. Objective Last Vital Signs Temp 36.3 C L 07/18/24 09:13 Pulse 77 07/18/24 09:13 Resp 16 07/18/24 09:13 BP 126/80 07/18/24 09:13 Pulse Ox 97 07/18/24 09:13 Laboratory Results - last 24 hr 07/17/24 07/18/24 03:15 05:59 WBC 8.31 RBC 3.69 L Hgb 11.1 L Hct 31.5 L MCV 85 MCH 30.1 MCHC 35.2 RDW 11.9 Plt Count 194 MPV 10.6 Sodium 142 Potassium 4.5 Chloride 109 H Carbon Dioxide 28.4 Anion Gap 4.6 BUN 47 H Creatinine 5.8 H* Est GFR (CKD-EPI 2020) 12.99 Glucose 96 Calcium 8.4 L Ur Random Creatinine 67.46 U Random Total Protein 45.2 U [place] Prot/Creat Ratio 0.67 Time Spent with Patient Time Spent with Patient: 25-34 minutes Time was spent: preparing to see the patient(eg.review tests), obtaining and/or reviewing separately otained hiistory, ordering medications,tests, procedures, referring, communicating with other health point of care technician, indepentently interpreting results, counseling the patient, care coordination and other
[2024-07-18 20:17] VITALS: BP 150/93; PULSE 54; RESP 18; TEMP 37.4; O2SAT 99
[2024-07-18 23:18] VITALS: BP 134/94; PULSE 49; RESP 18; TEMP 37.5; O2SAT 97
[2024-07-19 03:16] VITALS: BP 147/82; PULSE 68; RESP 18; TEMP 37.3; O2SAT 96
[2024-07-19] MEDS: Lactated Ringers 1,000 ML 150 ML IV ×2 (06:10→13:50)
[2024-07-19 06:27] LABS: Abs Immature Grans 0.02 10^3/uL (0.0-0.06); Absolute Basophil Count 0.03 10^3/uL (0.0-0.2); Absolute Eosinophil Count 0.21 10^3/uL (0.0-0.7); Absolute Lymphocyte Count 1.92 10^3/uL (1.2-3.4); Absolute Monocyte Count 0.63 10^3/uL (0.1-0.8); Absolute Neutrophil Count 5.67 10^3/uL (1.2-6.7); Basophils % 0.4 %; Eosinophils % 2.5 %; HCT 30.6 % (40.0-50.0); HGB 10.8 g/dL (13.5-17.5); Immature Grans % 0.2 %; Lymphocytes % 22.6 %; MCH 30.1 pg (27.0-33.0); MCHC 35.3 % (32.0-36.0); MCV 85 fL (80-95); MPV 10.7 fL (8.0-11.0); Monocytes % 7.4 %; Neutrophils % 66.9 %; Platelet Count 193 10^3/uL (130-400); RBC 3.59 10^6/uL (4.36-5.78); RDW 11.9 % (11.8-14.1); WBC 8.48 10^3/uL (4.4-10.8)
[2024-07-19 07:22] LABS: ALT 19 U/L (16-63); AST 13 U/L (15-37); Albumin 2.7 g/dL (3.4-5.0); Alkaline Phosphatase 47 U/L (46-116); BUN 39 mg/dL (7-18); Bilirubin, Total 0.4 mg/dL (0.2-1.0); Calcium 8.5 mg/dL (8.5-10.1); Chloride 109 mmol/L (98-107); Estimated GFR 13.55 (mL/min/1.73m2); Glucose 97 mg/dL (74-106); Potassium 4.4 mmol/L (3.5-5.1); Sodium 142 mmol/L (136-145); Total Protein 5.7 g/dL (6.4-8.2)
[2024-07-19 07:27] LABS: CREATININE 5.6 mg/dL (0.70-1.30)
[2024-07-19 08:16] VITALS: BP 136/89; PULSE 71; RESP 18; TEMP 37.3; O2SAT 98
[2024-07-19] MEDS: Normal Saline Flush 10 ML SYR IVP ×2 (08:52→20:32)
[2024-07-19 12:34] VITALS: BP 138/95; PULSE 86; RESP 18; TEMP 37.1; O2SAT 98
[2024-07-19 15:11] VITALS: BP 142/99; PULSE 71; RESP 18; TEMP 37.1; O2SAT 97
--- NOTE | 2024-07-19 15:32 | W.PM.PROGNOT ---
Date of Service Date of service: 07/19/24 Time of Service: 15:32 Assessment and Plan Assessment and plan (1) MANDY (acute kidney injury): Start date: 07/16/24 Status: Acute Assessment and plan: In setting of nausea and vomiting/dehydration along with NSAID use. U/a with only few RBCs and protein, no WBC. Not c/w nephritis. No casts. No change on repeat 07/17. No obstruction evident. U/s reassuring. At this point, looks like pre-renal led to ATN. Expect slow improvement over days. Continue IV fluids, he is now taking some po. Urine output has has been adequate, continue strict i/os. 07/18/24 Mild improvement over last 24 hours. CW IVF LR at 150 and recheck cmp in am 07/19/24 mild improvement, cw IVF (2) Nausea & vomiting: Start date: 07/16/24 Status: Acute Assessment and plan: Improved. Continue supportive care. 07/19/24 resolved (3) Dental infection: Status: Acute Assessment and plan: Not severe, can consider resuming antibiotics when kidney function improves, no change today. 07/18/24 Pt will need definitive dental treatment (4) DVT prophylaxis: Status: Acute Assessment and plan: he is young and ambulatory, stopped LMWH. Subjective Subjective Interval history since last seen: Pt seen and examined in his room this am. POC d/w pt/family as well as with bedside nurse during MDR Exam Narrative Exam Narrative: General: Patient peers appropriate age, thinly built, alert and oriented x 3 and in no acute distress. HEENT: MMM Lungs: Clear to auscultation percussion with no focalizing rales or rhonchi. Heart: Regular rate and rhythm with no murmurs gallops appreciated. Abdomen: soft, NT/ND, no masses Back: no CVAT Extremities: Without clubbing, cyanosis or pitting edema. Peripheral pulses intact. Objective Last Vital Signs Temp 37.1 C 07/19/24 15:11 Pulse 71 07/19/24 15:11 Resp 18 07/19/24 15:11 BP 142/99 H 07/19/24 15:11 Pulse Ox 97 07/19/24 15:11 Laboratory Results - last 24 hr 07/19/24 06:02 WBC 8.48 RBC 3.59 L Hgb 10.8 L Hct 30.6 L MCV 85 MCH 30.1 MCHC 35.3 RDW 11.9 Plt Count 193 MPV 10.7 Immature Gran % 0.2 Neutrophils % 66.9 Lymphocytes % 22.6 Monocytes % 7.4 Eosinophils % 2.5 Basophils % 0.4 Nucleated RBC % 0.0 Absolute Neutrophils 5.67 Absolute Lymphocytes 1.92 Absolute Monocytes 0.63 Absolute Eosinophils 0.21 Absolute Basophils 0.03 Sodium 142 Potassium 4.4 Chloride 109 H Carbon Dioxide 25.0 Anion Gap 8.0 BUN 39 H Creatinine 5.6 H* Est GFR (CKD-EPI 2020) 13.55 Glucose 97 Calcium 8.5 Total Bilirubin 0.4 AST 13 L ALT 19 Alkaline Phosphatase 47 Total Protein 5.7 L Albumin 2.7 L Time Spent with Patient Time Spent with Patient: 25-34 minutes Time was spent: preparing to see the patient(eg.review tests), obtaining and/or reviewing separately otained hiistory, ordering medications,tests, procedures, referring, communicating with other health school childcare attendant, indepentently interpreting results, counseling the patient and care coordination
[2024-07-19] MEDS: Ondansetron O.D.T. 4 MG TABEF PO (17:49)
[2024-07-19 22:22] VITALS: BP 137/111; PULSE 65; RESP 20; TEMP 37.1; O2SAT 97
[2024-07-20] VITALS (9 sets, daily range): BP systolic 150–164; BP diastolic 78–108; PULSE 57–71; RESP 18–24; TEMP 37–38.5; O2SAT 92–95
[2024-07-20] MEDS: Lactated Ringers 1,000 ML 150 ML IV ×3 (05:00→19:31)
[2024-07-20] MEDS: Mylanta Suspension 30 ML CUP PO (07:22)
[2024-07-20 07:33] LABS: Abs Immature Grans 0.03 10^3/uL (0.0-0.06); Absolute Basophil Count 0.03 10^3/uL (0.0-0.2); Absolute Eosinophil Count 0.12 10^3/uL (0.0-0.7); Absolute Lymphocyte Count 1.54 10^3/uL (1.2-3.4); Absolute Monocyte Count 0.55 10^3/uL (0.1-0.8); Absolute Neutrophil Count 5.53 10^3/uL (1.2-6.7); Basophils % 0.4 %; Eosinophils % 1.5 %; HCT 29.1 % (40.0-50.0); HGB 10.2 g/dL (13.5-17.5); Immature Grans % 0.4 %; Lymphocytes % 19.7 %; MCH 30.1 pg (27.0-33.0); MCHC 35.1 % (32.0-36.0); MCV 86 fL (80-95); MPV 10.8 fL (8.0-11.0); Monocytes % 7.1 %; Neutrophils % 70.9 %; Platelet Count 205 10^3/uL (130-400); RBC 3.39 10^6/uL (4.36-5.78); RDW 11.8 % (11.8-14.1); RDW-SD 37.2 fL
[2024-07-20 07:52] LABS: ALT 16 U/L (16-63); AST 12 U/L (15-37); Albumin 2.6 g/dL (3.4-5.0); Alkaline Phosphatase 46 U/L (46-116); Anion Gap 9.6 mmol/L (3-11); BUN 33 mg/dL (7-18); Bilirubin, Total 0.4 mg/dL (0.2-1.0); CO2 27.4 mmol/L (21.0-32.0); Calcium 8.4 mg/dL (8.5-10.1); Chloride 107 mmol/L (98-107); Estimated GFR 14.48 (mL/min/1.73m2); Glucose 92 mg/dL (74-106); Potassium 4.6 mmol/L (3.5-5.1); Sodium 144 mmol/L (136-145); Total Protein 5.7 g/dL (6.4-8.2)
[2024-07-20 08:02] LABS: CREATININE 5.3 mg/dL (0.70-1.30)
--- NOTE | 2024-07-20 11:59 | PDOC.CMPRO ---
Date of service: 07/20/24 Time of Service: 11:59 Care Management Progress Note Progress Note Text Progress Note Text: Fady was lying in bed when CM met with him today. He was very pleasant with CM, although not overly talkative. He is showing very slow improvements in his kidney function, and also in the way he is feeling. He is able to tolerate more foods, and has even gained some of his weight back. Navi continues to deny and needs from CM. Discharge Potential Discharge Needs: PCP F/U Appt Anticipated Barriers to Discharge: None Identified Patient/Family Education Needs: Review discharge instructions, discuss Ask Me Three Transportation: Private vehicle Plan: Fady will discharge home with no new orders once he is medically stable. He will f/u with his PCP in [place] and continue per his plan of care. He will transport home in a private vehicle with family. CM will continue to follow. Social Determinants of Health Screening Social Determinants of health last assessed in clinic: 07/20/24 Will the Patient Participate in the Screening?: Yes Do you worry about having a steady place to live?: no Problems where you live: no known problems In the past 12 months, have you had to go without electric, gas, oil or water in your home?: no 1. Within the past 12 months, we worried whether our food would run out before we got money to buy more.: Don't know/refused 2. Within the past 12 months, the food we bought just didn't last and we didn't have money to get more.: Don't know/refused Has lack of transportation kept you from medical appointments or from doing things needed for daily living?: no Has anyone in your life made you feel unsafe or unsupported?: no How hard is it for you to pay for the very basics like food, housing, medical care, and heating? Would you say it is:: Very hard Do you want help finding or keeping work or a job?: I do not need or want help If for any reason you need help with day-to-day activities such as bathing, preparing meals, shopping, managing finances, etc., do you get the help you need?: I get all the help I need How often do you feel lonely or isolated from those around you?: Never Do you speak a language other than Indonesian at home?: No Does the patient want assistance with any of the above?: No Health Related Social Needs Health related social needs: problems related to housing/economic circumstances (Z59.89) Health related social needs details: financial difficulties
[2024-07-20] MEDS: Ondansetron O.D.T. 4 MG TABEF PO (13:47)
--- NOTE | 2024-07-20 15:47 | DI.RAD_ITS ---
Exam(s) XR ABDOMEN FLAT UPRIGHT EXAM: XR ABDOMEN FLAT UPRIGHT CLINICAL HISTORY: pain. TECHNIQUE: 2D digital imaging was performed. COMPARISON: No exams were available for comparison FINDINGS: Supine and upright views of the abdomen: There are significant infiltrates in both lung bases and bilateral pleural effusions. No obvious free air. Stomach is not distended. There is air seen throughout all of the small enlarg ed bowel loops which are not distended but exhibits somewhat of an I ileus pattern. There is no cons tipation. No abnormal calcifications. Regional bones appear unremarkable. IMPRESSION: Air-filled but nondilated small and large bowel loops throughout the abdomen and pelvis. The stomach is not distended. There are prominent infiltrates in both lung bases and there are moderate size bilateral pleural effu sions. There are no prior chest imaging studies in the PACS. DATA REPOSITORY: RADIATION DOSE DELIVERED:
--- NOTE | 2024-07-20 17:58 | PGE_ITS ---
Date of Service Date of service: 07/20/24 Time of Service: 17:58 Assessment and Plan Assessment and plan (1) MANDY (acute kidney injury): Start date: 07/16/24 Status: Acute Assessment and plan: In setting of nausea and vomiting/dehydration along with NSAID use. U/a with only few RBCs and protein, no WBC. Not c/w nephritis. No casts. No change on repeat 07/17. No obstruction evident. U/s reassuring. At this point, looks like pre-renal led to ATN. Expect slow improvement over days. Continue IV fluids, he is now taking some po. Urine output has has been adequate, continue strict i/os. 07/18/24 Mild improvement over last 24 hours. CW IVF LR at 150 and recheck cmp in am 07/19/24 mild improvement, cw IVF 07/20/24 continues to improve, but slowly (2) Nausea & vomiting: Start date: 07/16/24 Status: Acute Assessment and plan: Improved. Continue supportive care. 07/19/24 resolved (3) Dental infection: Status: Acute Assessment and plan: Not severe, can consider resuming antibiotics when kidney function improves, no change today. 07/18/24 Pt will need definitive dental treatment (4) DVT prophylaxis: Status: Acute Assessment and plan: he is young and ambulatory, stopped LMWH. (5) Pleural effusion: Status: Acute Assessment and plan: found incidentally on abdominal film. Will do dedicated cxr Subjective Subjective Interval history since last seen: no new complaints Exam Narrative Exam Narrative: General: Patient peers appropriate age, thinly built, alert and oriented x 3 and in no acute distress. HEENT: MMM Lungs: Clear to auscultation percussion with no focalizing rales or rhonchi. Heart: Regular rate and rhythm with no murmurs gallops appreciated. Abdomen: soft, NT/ND, no masses Back: no CVAT Extremities: Without clubbing, cyanosis or pitting edema. Peripheral pulses intact. Objective Last Vital Signs Temp 37.6 C H 07/20/24 15:10 Pulse 70 07/20/24 15:10 Resp 24 07/20/24 15:10 BP 153/106 H 07/20/24 15:10 Pulse Ox 92 07/20/24 15:10 Laboratory Results - last 24 hr 06/02/25 06:18 WBC 7.80 RBC 3.39 L Hgb 10.2 L Hct 29.1 L MCV 86 MCH 30.1 MCHC 35.1 RDW 11.8 Plt Count 205 MPV 10.8 Immature Gran % 0.4 Neutrophils % 70.9 Lymphocytes % 19.7 Monocytes % 7.1 Eosinophils % 1.5 Basophils % 0.4 Nucleated RBC % 0.0 Absolute Neutrophils 5.53 Absolute Lymphocytes 1.54 Absolute Monocytes 0.55 Absolute Eosinophils 0.12 Absolute Basophils 0.03 Sodium 144 Potassium 4.6 Chloride 107 Carbon Dioxide 27.4 Anion Gap 9.6 BUN 33 H Creatinine 5.3 H* Est GFR (CKD-EPI 2020) 14.48 Glucose 92 Calcium 8.4 L Total Bilirubin 0.4 AST 12 L ALT 16 Alkaline Phosphatase 46 Total Protein 5.7 L Albumin 2.6 L Time Spent with Patient Time Spent with Patient: 25-34 minutes Time was spent: preparing to see the patient(eg.review tests), obtaining and/or reviewing separately otained hiistory, ordering medications,tests, procedures, referring, communicating with other health pediatric critical care nurse, indepentently interpreting results, counseling the patient and care coordination
--- NOTE | 2024-07-20 18:51 | DI.RAD_ITS ---
Exam(s) XR PORTABLE CHEST AP EXAM: XR PORTABLE CHEST AP CLINICAL HISTORY: pleural effusion. TECHNIQUE: 2D digital imaging was performed. COMPARISON: CR XR ABDOMEN FLAT UPRIGHT from 07/20/2024 FINDINGS: Single AP portable view. Heart size is normal mediastinum is not widened. There is significant infiltrate in both lower lobes and pleural effusions, right larger than left. IMPRESSION: Significant bilateral lower lobe infiltrates and pleural effusions. The right pleural effusion is la rger than the left. DATA REPOSITORY: RADIATION DOSE DELIVERED:
[2024-07-20] MEDS: Acetaminophen 325 MG TAB PO (19:30)
[2024-07-20] MEDS: Normal Saline Flush 10 ML SYR IVP (19:31)
[2024-07-21] VITALS (8 sets, daily range): BP systolic 139–160; BP diastolic 92–110; PULSE 59–90; RESP 16–20; TEMP 36.7–37.5; O2SAT 93–99
[2024-07-21] MEDS: Lactated Ringers 1,000 ML 150 ML IV ×2 (02:38→23:32)
--- NOTE | 2024-07-21 10:05 | DI.CT_ITS ---
Exam(s) CT CHEST WO EXAM: CT CHEST WO CLINICAL HISTORY: effusions. TECHNIQUE: Multi planar reconstructions were performed. CONTRAST MATERIAL: None COMPARISON: CR XR PORTABLE CHEST AP from 07/20/2024 FINDINGS: CHEST: LUNGS: There is a moderate size right pleural effusion and a small left pleural effusion. There is s ome infiltrate in the right lower lobe but there is also significant volume loss in the basal segment s of both lower lobes. No cavitation. No obvious abnormality in the trachea and mainstem bronchi. There is also some infiltrate in the right middle lobe. There is sparing of the upper lobes and ling ular segment of the left lung. MEDIASTINUM: There is no obvious hilar nor mediastinal adenopathy. Visualized thyroid unremarkable.No obvious axillary adenopathy CARDIAC: Heart size is normal. There is no pericardial effusion.Caliber of the thoracic aorta is wit hin normal limits. VISUALIZED UPPER ABDOMEN:No adrenal masses. No splenomegaly. OSSEOUS: No significant osseous lesions.No fractures evident.. IMPRESSION: 1. There is a moderate size right pleural effusion and a small left pleural effusion. There is infil trate in both lung bases, slightly more so on the right side. There is also volume loss in the basal segments of both lower lobes related to the effusions. 2. No obvious mass. No obvious intrathoracic lymphadenopathy. 3. No significant osseous findings. RADIATION DOSE DELIVERED: 177.86mGy.cm Total DLP DATA REPOSITORY: All CT scans at this facility are submitted to the National Radiology Data Registry (NRDR) Dose Index Registry (DIR) with the [employer] (ACR). RADIATION OPTIMIZATION: All CT scans at this facility use at least one of these dose optimization te chniques: automated exposure control; mA and/or kV adjustment per patient size (includes targeted exa ms where dose is matched to clinical indication); or iterative reconstruction.
[2024-07-21 10:50] LABS: ALT 16 U/L (16-63); AST 10 U/L (15-37); Albumin 2.9 g/dL (3.4-5.0); Alkaline Phosphatase 52 U/L (46-116); Anion Gap 7.5 mmol/L (3-11); BUN 28 mg/dL (7-18); Bilirubin, Total 0.6 mg/dL (0.2-1.0); CO2 29.5 mmol/L (21.0-32.0); Calcium 8.9 mg/dL (8.5-10.1); Chloride 106 mmol/L (98-107); Estimated GFR 17.16 (mL/min/1.73m2); Glucose 107 mg/dL (74-106); Potassium 4.2 mmol/L (3.5-5.1); Sodium 143 mmol/L (136-145); Total Protein 6.3 g/dL (6.4-8.2)
[2024-07-21 10:54] LABS: CREATININE 4.6 mg/dL (0.70-1.30)
--- NOTE | 2024-07-21 11:09 | PDOC.CMPRO ---
Date of service: 07/21/24 Time of Service: 11:09 Care Management Progress Note Progress Note Text Progress Note Text: Fady was sitting up in the bed, visiting with his Mom (who is here with him from [place]), when CM met with him this morning. He was pleasant, but again not very talkative. He stated that he still cannot really handle solid foods yet. He is off of his IV fluids and is starting to become a bit edematous,per nursing, and pleural effusions were noted on CXR yesterday. Today he went for a chest CT, but the results are pending. His BUN and creatinine are trending down. Navi appears down, as any young person would. His mom, Christina, asked about mental health services. Since he is not acute, the building carpenter helper was offered. CM spoke with the building carpenter helper who has ageed to reach out to Navi. Discharge Potential Discharge Needs: PCP F/U Appt Anticipated Barriers to Discharge: None Identified (Navi is making very slow, but steady progress with his kidney function. Pleural effusions will need to be followed.) Patient/Family Education Needs: Review discharge instructions, discuss Ask Me Three Transportation: Private vehicle (with his mom, Christina) Plan: Fady will discharge home with no new services once he is medically stable. He will f/u with his PCP in [place] and continue per his plan of care. He will transport home in a private vehicle with family. CM will continue to follow. Social Determinants of Health Screening Social Determinants of health last assessed in clinic: 07/21/24 Will the Patient Participate in the Screening?: Yes Do you worry about having a steady place to live?: no Problems where you live: no known problems In the past 12 months, have you had to go without electric, gas, oil or water in your home?: no 1. Within the past 12 months, we worried whether our food would run out before we got money to buy more.: Never true 2. Within the past 12 months, the food we bought just didn't last and we didn't have money to get more.: Never true Has lack of transportation kept you from medical appointments or from doing things needed for daily living?: no Has anyone in your life made you feel unsafe or unsupported?: no How hard is it for you to pay for the very basics like food, housing, medical care, and heating? Would you say it is:: Very hard Do you want help finding or keeping work or a job?: I do not need or want help If for any reason you need help with day-to-day activities such as bathing, preparing meals, shopping, managing finances, etc., do you get the help you need?: I get all the help I need How often do you feel lonely or isolated from those around you?: Never Do you speak a language other than Greek at home?: No Does the patient want assistance with any of the above?: No Health Related Social Needs Health related social needs: problems related to housing/economic circumstances (Z59.89) Health related social needs details: financial difficulties
--- NOTE | 2024-07-21 13:30 | CHAPLAIN ---
Annette from Care Management asked me to check in with Fady. We visited last week and talked some about [place], where he lives and I lived there for a couple of years in the 80s. Today he was very quiet, sitting on his bed and using his phone. He said his mom is around somewhere. He said he's okay with being here because he doesn't have a choice. When I asked if he's in touch with friends, he said I'm not very social. I will continue to visit.
[2024-07-21] MEDS: Acetaminophen 325 MG TAB PO ×2 (15:35→23:32)
--- NOTE | 2024-07-21 15:52 | PGE_ITS ---
Date of Service Date of service: 07/21/24 Time of Service: 15:52 Assessment and Plan Assessment and plan (1) MANDY (acute kidney injury): Start date: 07/16/24 Status: Acute Assessment and plan: In setting of nausea and vomiting/dehydration along with NSAID use. U/a with only few RBCs and protein, no WBC. Not c/w nephritis. No casts. No change on repeat 07/17. No obstruction evident. U/s reassuring. At this point, looks like pre-renal led to ATN. Expect slow improvement over days. Continue IV fluids, he is now taking some po. Urine output has has been adequate, continue strict i/os. 07/18/24 Mild improvement over last 24 hours. CW IVF LR at 150 and recheck cmp in am 07/19/24 mild improvement, cw IVF 07/20/24 continues to improve, but slowly 07/21/24 Much improvement today. Cr at 4.6 (2) Nausea & vomiting: Start date: 07/16/24 Status: Acute Assessment and plan: Improved. Continue supportive care. 07/19/24 resolved (3) Dental infection: Status: Acute Assessment and plan: Not severe, can consider resuming antibiotics when kidney function improves, no change today. 07/18/24 Pt will need definitive dental treatment (4) DVT prophylaxis: Status: Acute Assessment and plan: he is young and ambulatory, stopped LMWH. (5) Pleural effusion: Status: Acute Assessment and plan: found incidentally on abdominal film. Will do dedicated cxr 07/21/24 CT does show effusion with exact etiolgy unk. Will reach out to to see if this would be worthwhile to tap Subjective Subjective Interval history since last seen: Pt seen and examined in his room. Pt does have flat affect today and appears depressed. Exam Narrative Exam Narrative: General: Patient peers appropriate age, thinly built, alert and oriented x 3 and in no acute distress. HEENT: MMM Lungs: Clear to auscultation percussion with no focalizing rales or rhonchi. Heart: Regular rate and rhythm with no murmurs gallops appreciated. Abdomen: soft, NT/ND, no masses Back: no CVAT Extremities: Without clubbing, cyanosis or pitting edema. Peripheral pulses intact. Pych: flat affect Objective Last Vital Signs Temp 37.3 C 07/21/24 15:32 Pulse 90 07/21/24 15:32 Resp 16 07/21/24 15:32 BP 160/110 H 07/21/24 15:32 Pulse Ox 96 07/21/24 15:32 Laboratory Results - last 24 hr 07/21/24 09:50 Sodium 143 Potassium 4.2 Chloride 106 Carbon Dioxide 29.5 Anion Gap 7.5 BUN 28 H Creatinine 4.6 H* Est GFR (CKD-EPI 2020) 17.16 Glucose 107 H Calcium 8.9 Total Bilirubin 0.6 AST 10 L ALT 16 Alkaline Phosphatase 52 Total Protein 6.3 L Albumin 2.9 L Time Spent with Patient Time Spent with Patient: 25-34 minutes Time was spent: preparing to see the patient(eg.review tests), obtaining and/or reviewing separately otained hiistory, ordering medications,tests, procedures, referring, communicating with other health resident care manager, indepentently interpreting results, counseling the patient and care coordination
[2024-07-21] MEDS: hydrALAZINE 20 MG/ML VIAL 10 MG IVP (16:07)
[2024-07-21] MEDS: Ondansetron O.D.T. 4 MG TABEF PO (18:12)
[2024-07-21] MEDS: Metoprolol CR 25 MG TABCR PO (18:22)
[2024-07-21] MEDS: Prochlorperazine 10 MG/2 ML VIAL IVP ×2 (18:39→23:33)
[2024-07-21] MEDS: Normal Saline Flush 10 ML SYR IVP (21:20)
[2024-07-22] VITALS (7 sets, daily range): BP systolic 125–149; BP diastolic 82–108; PULSE 53–84; RESP 12–19; TEMP 36.5–37.7; O2SAT 93–96
--- NOTE | 2024-07-22 00:26 | NUR.NOTE ---
I have assumed the care of this patient as of Nursing Note:
--- NOTE | 2024-07-22 00:30 | NUR.NOTE ---
07/21/2024 23:32 I have assumed care of this patient.Nursing Note:
[2024-07-22] MEDS: Lactated Ringers 1,000 ML 150 ML IV ×3 (06:12→19:39)
[2024-07-22 06:50] LABS: Abs Immature Grans 0.04 10^3/uL (0.0-0.06); Absolute Basophil Count 0.02 10^3/uL (0.0-0.2); Absolute Eosinophil Count 0.14 10^3/uL (0.0-0.7); Absolute Lymphocyte Count 1.71 10^3/uL (1.2-3.4); Absolute Monocyte Count 0.64 10^3/uL (0.1-0.8); Absolute Neutrophil Count 5.12 10^3/uL (1.2-6.7); Basophils % 0.3 %; Eosinophils % 1.8 %; HCT 30.4 % (40.0-50.0); HGB 10.2 g/dL (13.5-17.5); Immature Grans % 0.5 %; Lymphocytes % 22.3 %; MCH 29.1 pg (27.0-33.0); MCHC 33.6 % (32.0-36.0); MCV 87 fL (80-95); MPV 10.2 fL (8.0-11.0); Monocytes % 8.3 %; Neutrophils % 66.8 %; Platelet Count 265 10^3/uL (130-400); RDW 11.9 % (11.8-14.1); RDW-SD 37.9 fL; WBC 7.67 10^3/uL (4.4-10.8)
[2024-07-22 07:14] LABS: ALT 13 U/L (16-63); AST 9 U/L (15-37); Albumin 2.6 g/dL (3.4-5.0); Alkaline Phosphatase 46 U/L (46-116); BUN 22 mg/dL (7-18); Bilirubin, Total 0.4 mg/dL (0.2-1.0); Calcium 8.3 mg/dL (8.5-10.1); Chloride 108 mmol/L (98-107); Estimated GFR 23.03 (mL/min/1.73m2); Glucose 97 mg/dL (74-106); Potassium 3.9 mmol/L (3.5-5.1); Sodium 144 mmol/L (136-145); Total Protein 5.8 g/dL (6.4-8.2)
[2024-07-22 07:21] LABS: CREATININE 3.6 mg/dL (0.70-1.30)
[2024-07-22] MEDS: Normal Saline Flush 10 ML SYR IVP ×2 (07:53→19:41)
[2024-07-22] MEDS: Metoprolol CR 25 MG TABCR PO (07:53)
--- NOTE | 2024-07-22 13:24 | PGE_ITS ---
Date of Service Date of service: 07/22/24 Time of Service: 13:24 Assessment and Plan Assessment and plan (1) MANDY (acute kidney injury): Start date: 07/16/24 Status: Acute Assessment and plan: In setting of nausea and vomiting/dehydration along with NSAID use. U/a with only few RBCs and protein, no WBC. Not c/w nephritis. No casts. No change on repeat 07/17. No obstruction evident. U/s reassuring. At this point, looks like pre-renal led to ATN. Expect slow improvement over days. Continue IV fluids, he is now taking some po. Urine output has has been adequate, continue strict i/os. 07/18/24 Mild improvement over last 24 hours. CW IVF LR at 150 and recheck cmp in am 07/19/24 mild improvement, cw IVF 07/20/24 continues to improve, but slowly 07/21/24 Much improvement today. Cr at 4.6 07/22/24 Cr at 3.6 Hopeful for dc tomorrow (2) Nausea & vomiting: Start date: 07/16/24 Status: Acute Assessment and plan: Improved. Continue supportive care. 07/19/24 resolved (3) Dental infection: Status: Acute Assessment and plan: Not severe, can consider resuming antibiotics when kidney function improves, no change today. 07/18/24 Pt will need definitive dental treatment (4) DVT prophylaxis: Status: Acute Assessment and plan: he is young and ambulatory, stopped LMWH. (5) Pleural effusion: Status: Acute Assessment and plan: found incidentally on abdominal film. Will do dedicated cxr 07/21/24 CT does show effusion with exact etiolgy unk. Will reach out to [facility] to see if this would be worthwhile to tap 07/22/24 Decided on no tap as most likely this is due to his MANDY and will resolve without treatment Subjective Subjective Interval history since last seen: pt resting comfortably, did not wake. Did discuss POC with Mother who was in the room. Plan for dc tomorrow if continues current trajectory Exam Narrative Exam Narrative: resting comfortably ncat no amu no visible scars/rashes Objective Last Vital Signs Temp 37 C 07/22/24 11:31 Pulse 71 07/22/24 11:31 Resp 12 07/22/24 11:31 BP 138/96 H 07/22/24 11:31 Pulse Ox 94 06/04/25 11:31 Laboratory Results - last 24 hr 07/22/24 06:07 WBC 7.67 RBC 3.50 L Hgb 10.2 L Hct 30.4 L MCV 87 MCH 29.1 MCHC 33.6 RDW 11.9 Plt Count 265 MPV 10.2 Immature Gran % 0.5 Neutrophils % 66.8 Lymphocytes % 22.3 Monocytes % 8.3 Eosinophils % 1.8 Basophils % 0.3 Nucleated RBC % 0.0 Absolute Neutrophils 5.12 Absolute Lymphocytes 1.71 Absolute Monocytes 0.64 Absolute Eosinophils 0.14 Absolute Basophils 0.02 Sodium 144 Potassium 3.9 Chloride 108 H Carbon Dioxide 27.0 Anion Gap 9.0 BUN 22 H Creatinine 3.6 H* Est GFR (CKD-EPI 2020) 23.03 Glucose 97 Calcium 8.3 L Total Bilirubin 0.4 AST 9 L ALT 13 L Alkaline Phosphatase 46 Total Protein 5.8 L Albumin 2.6 L Time Spent with Patient Time Spent with Patient: 25-34 minutes Time was spent: preparing to see the patient(eg.review tests), obtaining and/or reviewing separately otained hiistory, ordering medications,tests, procedures, referring, communicating with other health childcare administrator, indepentently interpreting results, counseling the patient and care coordination
--- NOTE | 2024-07-22 16:24 | CMPROGNOTE_ITS ---
Date of service: 07/22/24 Time of Service: 12:05 Care Management Progress Note Progress Note Text Progress Note Text: Fady was lying in bed, his mom, Christina, was visiting, when CM met with him today. He was pleasant, but again, not overly talkative. He stated that he is feeling a little better, is eating and drinking more. His labs were much improved today, and there is some talk that he may be able to discharge tomorrow as long as that trend continues. Navi has a PCP appointment scheduled for 08/04. This will be his first appointment at that practice. His mom scheduled that appt. for him. He will be seeing Lexi Fabian MD at [address] [place] [address], . . CM called the practice today and got the fax: [phone] attelio Carcamo. service desk director was given this info. Discharge Potential Discharge Needs: PCP F/U Appt (see above) Anticipated Barriers to Discharge: None Identified Patient/Family Education Needs: Review discharge instructions, discuss Ask Me Three Transportation: Private vehicle (with Mom) Plan: Anticipate that Fady will discharge home with no new services within the next day or 2. He will f/u with his PCP on 08/04, and continue per his plan of care. He will transport with his mom. CM will continue to follow. Social Determinants of Health Screening Social Determinants of health last assessed in clinic: 07/22/24 Will the Patient Participate in the Screening?: Yes Do you worry about having a steady place to live?: no Problems where you live: no known problems In the past 12 months, have you had to go without electric, gas, oil or water in your home?: no 1. Within the past 12 months, we worried whether our food would run out before we got money to buy more.: Never true 2. Within the past 12 months, the food we bought just didn't last and we didn't have money to get more.: Never true Has lack of transportation kept you from medical appointments or from doing things needed for daily living?: no Has anyone in your life made you feel unsafe or unsupported?: no How hard is it for you to pay for the very basics like food, housing, medical care, and heating? Would you say it is:: Very hard Do you want help finding or keeping work or a job?: I do not need or want help If for any reason you need help with day-to-day activities such as bathing, preparing meals, shopping, managing finances, etc., do you get the help you need?: I get all the help I need How often do you feel lonely or isolated from those around you?: Never Do you speak a language other than [place] at home?: No Does the patient want assistance with any of the above?: No Health Related Social Needs Health related social needs: problems related to housing/economic circumstances (Z59.89) Health related social needs details: financial difficulties
[2024-07-23 02:39] VITALS: BP 125/75; PULSE 63; RESP 20; TEMP 37.3; O2SAT 96
[2024-07-23 07:29] LABS: Abs Immature Grans 0.03 10^3/uL (0.0-0.06); Absolute Basophil Count 0.02 10^3/uL (0.0-0.2); Absolute Eosinophil Count 0.18 10^3/uL (0.0-0.7); Absolute Lymphocyte Count 2.06 10^3/uL (1.2-3.4); Absolute Monocyte Count 0.62 10^3/uL (0.1-0.8); Absolute Neutrophil Count 4.73 10^3/uL (1.2-6.7); Basophils % 0.3 %; Eosinophils % 2.4 %; HCT 29.8 % (40.0-50.0); HGB 10.1 g/dL (13.5-17.5); Immature Grans % 0.4 %; MCH 29.1 pg (27.0-33.0); MCHC 33.9 % (32.0-36.0); MCV 86 fL (80-95); MPV 9.8 fL (8.0-11.0); Monocytes % 8.1 %; Neutrophils % 61.8 %; Platelet Count 275 10^3/uL (130-400); RBC 3.47 10^6/uL (4.36-5.78); RDW-SD 37.4 fL; WBC 7.64 10^3/uL (4.4-10.8)
[2024-07-23 07:35] VITALS: BP 148/100; PULSE 73; RESP 16; TEMP 37.4; O2SAT 96
[2024-07-23] MEDS: Normal Saline Flush 10 ML SYR IVP (07:38)
[2024-07-23] MEDS: Metoprolol CR 25 MG TABCR PO (07:38)
[2024-07-23 07:45] LABS: ALT 15 U/L (16-63); AST 12 U/L (15-37); Albumin 2.8 g/dL (3.4-5.0); Alkaline Phosphatase 48 U/L (46-116); Anion Gap 7.5 mmol/L (3-11); BUN 19 mg/dL (7-18); Bilirubin, Total 0.4 mg/dL (0.2-1.0); CO2 27.5 mmol/L (21.0-32.0); CREATININE 3.5 mg/dL (0.70-1.30); Calcium 8.6 mg/dL (8.5-10.1); Chloride 107 mmol/L (98-107); Estimated GFR 23.82 (mL/min/1.73m2); Glucose 95 mg/dL (74-106); Potassium 3.9 mmol/L (3.5-5.1); Sodium 142 mmol/L (136-145); Total Protein 6.3 g/dL (6.4-8.2)
[2024-07-23 07:53] VITALS: BP 158/110; PULSE 73; RESP 16; TEMP 36.5; O2SAT 97
--- NOTE | 2024-07-23 11:22 | CMDISCH_ITS ---
Date of service: 07/23/24 Time of Service: 11:22 LACE Index Scoring Tool Questions: Length of Stay (in days): 7 - 13 Was the patient admitted via the E.D.?: Yes E.D. Visits: 1 Answers: Total Score: 9 Risk of Readmission: Low Risk Care Management Discharge Plan Reason for Hospitalization: MANDY, Dehydration with nausea and vomiting Discharge Plan: Fady will discharge home with no new services today. He will f/u with his PCP on 08/04, and continue per his plan of care. He will transport with his mom. Patient/Family Education Needs: Review discharge instructions, activity, limitations and discharge plan of care. Discuss Ask Me Three. SDOH Health Related Social Needs: Health related social needs problems related to housin g/economic circumsta calvin (Z59.89) Health related social needs details financial difficul ties Health related social needs details: financial difficulties
--- NOTE | 2024-07-23 12:31 | DSE_ITS ---
Date of service: 07/23/24 Time of Service: 12:31 DS: Diagnosis Discharge Diagnosis (1) MANDY (acute kidney injury): Status: Acute (2) Nausea & vomiting: Status: Acute (3) Dental infection: Status: Acute (4) DVT prophylaxis: Status: Acute (5) Pleural effusion: Status: Acute Discharge Plan Disposition Patient Disposition: Home Condition: Improving Discharge Details Reason For Visit: MANDY, Dehydration with nausea and vomiting Admit Date/Time: 07/16/24 00:39 Admit Provider: Олег Chacon Attending Provider: Олег Chacon Primary Care Provider: Danita,Local Hospital Course Hospital Course: 23-year-old previously healthy gentleman presented with a 3 day history of nausea and vomiting in the setting of recent acute care for dental infection being treated with amoxicillin and ibuprofen who was found to be in renal failure with a creatinine of 5.6. He continued to make urine and never had dangerous electrolyte abnormalities. He was admitted and started on IV fluids and supportive care. His urinalysis on admission and again on 07/17 only showed 100 protein without WBC or significant RBC or casts. His prot/cr was high at 0.67. His FENa was intermediate at 1.3. His renal u/s was normal without hydronephrosis but did show some pleural fluid. It was felt this was ATN secondary to pre-renal azotemia with dehydration and NSAID use. His blood pressure was moderately elevated at times in 150s/100s but he was not treated. His creatinine peaked at 6.2 on 07/17, then slowly improved and was 3.5 on the day of discharge. He was given an appointment with a new PCP near home in [place]. Regarding the pleural effusions on u/s, chest CT without contrast showed bilateral effusion and possible infiltrates that was felt to be most c/w atelectasis. He was never hypoxic or with respiratory symtpoms or fevers. PCP follow up: Repeat BMP within one week Follow proteinuria If blood pressure remains elevated, consider RANDY inh/ARB thearpy Consult nephrology if creatinine not normalizing. Assess for respiratory symptoms and resolution of pleural effusions Home Meds and New Rx's Prescriptions: New ondansetron 4 mg Tablet,Disintegrating 4 mg PO Q8H PRN PRNQty: 15 0RF Continued acetaminophen [Tylenol] 325 mg tablet 650 mg PO Q6H PRN Discontinued amoxicillin 500 mg capsule 500 mg PO TID ibuprofen 300 mg tablet 600 mg PO Q6H Discharge Instructions Instructions: Kidney Failure (DC) Additional Instructions: Avoid dehydration resume normal activity I don't think you should take more antibiotics for now. You should follow up with a dentist. You should avoid amoxicillin at this point, though we do not know if you have a true allergy. You should avoid ibuprofen, naproxen, and other NSAIDs (non-steroidal anti- inflammatory medications) Follow up with your new primary care as planned. Referrals: No,Local [Primary Care Provider] - 08/04/24 11:45 am (Dr. Fabian) Activity:: Activity as Tolerated Equipment/Supplies:: No Equipment Needed Diet:: As Tolerated Discharge Orders Discharge Orders: Discharge Order (Routine); Ordered 07/23/24 Ordered By: Zhang Mandel DS: Summary Time Spent with Patient providing and/or coordinating discharge services: Greater than 30 minutes Status at Discharge Functional status at discharge: independent ambulation Overall status at discharge: patient is progressing back to baseline Mental Status: mental status grossly normal Speech and Movement: speech and movement normal Mood: congruent mood Affect: normal affect Quality:SDOH Health Related Social Needs: Health related social needs problems related to housin g/economic circumstances (Z59.89) Health related social needs details financial difficul ties Health related social needs details: financial difficulties Exam Narrative Exam Narrative: General: Alert and oriented x 3 and in no acute distress. HEENT: MMM Lungs: Clear to auscultation with no focalizing rales or rhonchi. Heart: Regular rate and rhythm with no murmurs gallops appreciated. Abdomen: soft, NT/ND, no masses Back: no CVAT Extremities: Without clubbing, cyanosis or pitting edema. Psych Mental Status: mental status grossly normal Speech and Movement: speech and movement normal Mood: congruent mood Affect: normal affect DS: Data Vitals/I&O Vitals and I&O: Vital Signs Temperature 36.5 C 07/23/24 07:53 Temperature Source Temporal Artery Scan 07/23/24 07:53 Pulse 73 07/23/24 07:53 Pulse Rhythm Regular 07/16/24 01:13 Pulse Strength Normal 07/16/24 00:06 Respiratory Rate 16 07/23/24 07:53 Respiratory Effort Normal, Non-Labored 07/16/24 01:13 Respiratory Depth Normal 07/16/24 01:13 Respiratory Pattern Normal 07/16/24 01:13 Blood Pressure 158/110 H 07/23/24 07:53 Blood Pressure Mean 126 07/23/24 07:53 Blood Pressure Position Sitting 07/16/24 00:06 Pulse Oximetry 97 07/23/24 07:53 Oxygen Delivery Method Room Air 07/23/24 07:53 Oxygen Flow Rate 0 07/23/24 07:53 Pain Level 0 07/23/24 07:53 Comment RN notified 07/22/24 07:35 Intake & Output 07/22/24 07/23/24 07/23/24 23:59 11:59 23:59 Intake Total 3257.5 / 4257.5 752.5 / 752.5 Output Total 2275 / 4860 3000 / 3000 Balance 982.5 / -602.5 -2247.5 / -2247.5 Weight 59.103 kg Intake: IV 3257.5 / 4257.5 752.5 / 752.5 Output: Urine 2275 / 4860 3000 / 3000 Other: Urine Color Pale Yellow Yellow Urine Appearance Clear Clear Urine Odor Normal Normal Comment Patient voids ind. in urinal. Data Completed and Pending Labs on day of discharge: Labs from last 24 hours 07/23/24 07:05 WBC 7.64 RBC 3.47 L Hgb 10.1 L Hct 29.8 L MCV 86 MCH 29.1 MCHC 33.9 RDW 12.0 Plt Count 275 MPV 9.8 Immature Gran % 0.4 Neutrophils % 61.8 Lymphocytes % 27.0 Monocytes % 8.1 Eosinophils % 2.4 Basophils % 0.3 Nucleated RBC % 0.0 Absolute Neutrophils 4.73 Absolute Lymphocytes 2.06 Absolute Monocytes 0.62 Absolute Eosinophils 0.18 Absolute Basophils 0.02 Sodium 142 Potassium 3.9 Chloride 107 Carbon Dioxide 27.5 Anion Gap 7.5 BUN 19 H Creatinine 3.5 H Est GFR (CKD-EPI 2020) 23.82 Glucose 95 Calcium 8.6 Total Bilirubin 0.4 AST 12 L ALT 15 L Alkaline Phosphatase 48 Total Protein 6.3 L Albumin 2.8 L PFSH All Active Problems (Updated 07/20/24 @ 18:06 by Darren Horvath MD) Pleural effusion (Acute) DVT prophylaxis (Acute) Dental infection (Acute) Acute dehydration (Acute) Nausea & vomiting (Acute) MANDY (acute kidney injury) (Acute) Social History Smoking risk assessment performed?: No Housing: apartment Time Spent with Patient Time Spent with Patient: <45 minutes Time was spent: preparing to see the patient(eg.review tests), obtaining and/or reviewing separately otained hiistory, ordering medications,tests, procedures, referring, communicating with other health acute care occupational therapist, indepentently interpreting results, counseling the patient and care coordination
== END 2024-07-23 12:48 | disposition home or self-care (01) | DRG 683 ==
LOC: ER 07-16 01:00 → MS 07-16 01:02
PROVIDERS: Family Medicine; Admitting Provider Family Medicine; Emergency Provider Emergency Medicine; Responsible Provider Hospitalist; Visit Provider Family Medicine
DX: N17.0 Acute kidney failure with tubular necrosis (principal); J90 Pleural effusion, not elsewhere classified; J98.11 Atelectasis; T39.315A Adverse effect of propionic acid derivatives, initial encounter; E86.0 Dehydration; R11.2 Nausea with vomiting, unspecified; K04.7 Periapical abscess without sinus; F12.91 Cannabis use, unspecified, in remission
CPT/HCPCS: 00123; 36415; 71250; 76770; 80048; 80053; 80307; 83690; 85027; 87637; 96361; 96374; 99285; 71045; 74019; 81003; 81015; 82565; 83735; 84156; 84300; 84443; 85025; 99222; 99231; 99238; J0360; J0780; J1650; J2405